=== PATIENT | female | born 1955 | race Caucasian/White ===

== ENCOUNTER 2017-11-12 19:10 | Inpatient (IN) | payer OTHER, SELFPAY ==
[2017-11-11 15:32] VITALS: BMI 45.7
[2017-11-12] VITALS (16 sets, daily range): BP systolic 115–166; BP diastolic 40–84; PULSE 60–70; RESP 12–16; TEMP 36.1–36.7; O2SAT 95–99; BMI 45.7
[2017-11-12] MEDS: LACTATED RINGERS 1,000 ML 42 ML IV (15:40)
--- NOTE | 2017-11-12 16:09 | PM.PREOP ---
Pre-operative Note Interval Note Pre-op Check: Yes History & Physical Reviewed by Physician and Yes Exam Performed Changes: No
--- NOTE | 2017-11-12 16:11 | P.OP_ITS ---
Operative Date/Time/Diagnoses Date of procedure: 11/12/17 Time of procedure: 16:20 Pre-op diagnosis: Left knee septic prepatellar bursitis Post-op diagnosis: same Procedure & Clinicians Procedure: Left knee irrigation and debridement, left knee prepatellar bursectomy Same procedure as scheduled: Yes Indications: Patient has a history of erythema and swelling along her left knee and prepatellar region. She was placed on oral antibiotics and subsequently seen at a walk-in clinic where she underwent an I and D. she notes persistent swelling and persistent drainage and ongoing significant pain. She has a history of a left total knee arthroplasty in 2015. Surgeon: Alise Stokes Shipping Agent: Dior Nunes Anesthesia Type: General Operative Notes Findings: Soft tissue swelling and an inflamed and thickened bursae which extended down to the pretibial area but did not clearly communicate with the knee joint. Closure Type: not applicable Specimen(s): other Applied: drain(s) Estimated Blood Loss (mL): 100 Blood products transfused: none Procedure in detail: The patient was brought to the operating room. Patient's left lower extremity was prepped and draped in standard sterile fashion after the induction of anesthesia. A time-out was performed. Patient's anterior surgical incision was used there was an open draining wound from her previous I and D done elsewhere. Incision was made dissection was carried out through skin and subcutaneous tissues. An excisional irrigation and debridement was performed debriding soft tissue and abnormal skin and subcutaneous tissues and a pretibial bursa. Deep tissue was sent for a Gram stain culture and sensitivity and PCR. Dissection was specifically carried out down to the level of the tibia. There was no obvious communication with the knee joint. The wound was meticulously irrigated with normal saline. Vancomycin powder was carefully placed into the wound. The wound was closed with nylon. A Hemovac drain was placed. Next the knee was prepped and an aspirate from a lateral approach was performed fluid was sent for Gram stain culture and sensitivity. A specific different approach was used in order to avoid contamination of the knee from the open wound. A aamir dressing was placed. Patient tolerated the procedure well and was transferred recovery room in satisfactory condition. Complications: other (Cultures and PCR) Condition: stable Disposition: Acute Care Plan for aftercare: IV antibiotics. Check culture and sensitivities. This may represent an underlying deep periprosthetic infection but we will follow up on cultures.
[2017-11-12] MEDS: VANCOMYCIN 1,000 MG VIAL 1000 MG INTRA-ARTI (16:48)
[2017-11-12] MEDS: GENTAMICIN IRR (16:51)
[2017-11-12] MEDS: SODIUM CHLORIDE 0.9% IRR (16:51)
[2017-11-12] MEDS: LORazepam 2 MG/ML SYRINGE 0.5 MG IV (17:33)
--- NOTE | 2017-11-12 17:38 | SUR.PHASEI ---
was very restless and moaning on arrival. S/P Lorazepam became calmer, reported feeling better and pain intensity decreased from 8 to 6 at this time.
[2017-11-12] MEDS: LACTATED RINGERS 1,000 ML 125 ML IV (19:46)
[2017-11-12] MEDS: OXYCODONE IR 5 MG TABLET PO (20:01)
[2017-11-12] MEDS: VANCOMYCIN 1,000 MG/200 ML FROZ.PIGGY 200 MG IV (21:06)
[2017-11-12] MEDS: MAGNESIUM HYDROXIDE 30 ML UDC PO (21:08)
[2017-11-12] MEDS: DOCUSATE 100 MG CAPSULE PO (21:08)
[2017-11-12 21:43] LABS: Estimated Glomerular Filt Rate > 60.0 mL/min (>60)
[2017-11-13] VITALS (7 sets, daily range): BP systolic 94–154; BP diastolic 57–74; PULSE 65–89; RESP 16–18; TEMP 36.4–36.8; O2SAT 93–97
[2017-11-13] MEDS: OXYCODONE IR 5 MG TABLET PO ×4 (01:14→19:50)
[2017-11-13 05:10] LABS: Hematocrit 35.7 % (36-46); Hemoglobin 11.8 g/dL (12.0-16.0); Mean Corpuscular HGB Conc 33.2 % (30-36); Mean Corpuscular Volume 75.3 fL (80-100); Platelet Count 202 X10^3/uL (150-400); Red Blood Cell Count 4.74 X10^6/uL (4.0-5.2); Red Cell Distribution Width 16.1 % (11.6-14.8); White Blood Cell Count 6.9 X10^3/uL (4.5-11.0)
[2017-11-13] MEDS: METFORMIN 850 MG TABLET PO ×2 (09:06→17:02)
[2017-11-13] MEDS: ATENOLOL 50 MG TABLET PO (09:06)
[2017-11-13] MEDS: DOCUSATE 100 MG CAPSULE PO ×2 (09:06→21:20)
[2017-11-13] MEDS: CALCIUM CARB/VIT D3 500/200 TABLET 1 EACH PO (09:06)
[2017-11-13] MEDS: MULTIVITAMIN 1 TABLET 1 TAB PO (09:07)
[2017-11-13] MEDS: VANCOMYCIN 1,000 MG/200 ML FROZ.PIGGY 200 MG IV ×2 (09:09→21:20)
--- NOTE | 2017-11-13 10:00 | PC.NURSE ---
AM NOTE - Alert, l knee w/christine wrap over aamir dsg, intact, green light flashing, small spot old serosang, hemovac intact w/o drainage in tubing or container, states pain 4 on scale -0/10, discussed medications and given 5mg oxycodone after breakfast for mobilization, bp 107/73 this am, ivf saline locked earlier, enc fluids, atenolol admin, will hold losartan and hctz until later after PT and review of bp, ra 95%, hr 78
--- NOTE | 2017-11-13 10:10 | PT.IIE ---
Current Diagnoses Effusion, left knee (11/12/17) Presence of left artificial knee joint (11/12/17) Surgery Performed Operation Date: 11/12/17 16:30 Actual Procedures p Incision and Drainage S/P Total Knee(Left) - Alise Stokes MD s LEFT KNEE IRRIGATION AND DEBRIDMENT BURSECTOMY(Left) - Alise Stokes MD Surgical History (Last Updated 11/11/17 @ 15:41 by Adriana Montana, RN) H/O arthrodesis (Acute) H/O: (Acute) History of total knee arthroplasty (Acute 03/30/13) S/P bunionectomy (Acute) S/P foot surgery, left (Acute) Medical History (Last Updated 11/11/17 @ 15:41 by Adriana Montana, RN) Arthritis (Acute) Cellulitis of knee, left (Acute) Diabetes (Acute) Fibromyalgia (Acute) Hypertension (Acute) Local infection of skin and subcutaneous tissue (Acute) Thyroid disease (Acute) Physical Therapy Inpatient Evaluation/Re-Eval M1 PT/OT-IP Prior Functional Status Start: 11/13/17 12:17 Freq: NEEDED Status: Active Protocol: Document 11/13/17 10:10 AB (Rec: 11/13/17 12:35 AB [email or web address]) Medical Review Prior Functional Status Medical History Reviewed Yes Mobility and Gait pt stated that she is independent with all mobilities and ambulation without AD but occasionally uses a hurrycane Social History Household Members spouse Living Arrangements House Number of Floors (Floors) One Floor Number of Stairs To Enter/Railing? pt has a ramp to enter the house Home Environment High Toilet Walk in Shower Home Equipment Front Wheel Walker Straight Cane Hand Held Shower Grab Bars Near Toilet Grab Bars In Shower Employment Status Retired Additional Social History Comment pt has a hurrycane M2 PT-IP Current Condition Start: 11/13/17 12:17 Freq: NEEDED Status: Active Protocol: Document 11/13/17 10:10 AB (Rec: 11/13/17 12:35 AB [email or web address]) Physical Therapy Current Condition Current Condition Evaluation Date 11/13/17 Treatment Diagnosis s/p I&D L knee and prepatellar bursectomy; difficulties in walking Onset Date 11/12/17 Weight Bearing Status Weight Bearing Status Weight Bear as Tolerated M3 PT-IP Subjective Start: 11/13/17 12:17 Freq: NEEDED Status: Active Protocol: Document 11/13/17 10:10 AB (Rec: 11/13/17 12:35 AB [email or web address]) Subjective Physical Therapy Visit Type Type Initial Evaluation Visit Start Time 10:10 Visit Stop Time 10:35 Total Visit Minutes 25 Number of PHOTO COLORER Visits 0 Physical Therapy Visit Comments Patient Comments pt requesting to use the toilet Therapy Pain Assessment Pain When Pain Assessed At Rest Pain Present Pain Present Pain Reported Location Left Knee Intensity 1 Scale Used Numeric (1 - 10) Pain Management Techniques Apply Cold Timing of Activity with Medications M4 PT-IP Mobility and Gait Start: 11/13/17 12:17 Freq: NEEDED Status: Active Protocol: Document 11/13/17 10:10 AB (Rec: 11/13/17 12:35 AB [email or web address]) PT-Bed Mobility Assessment Supine to Sit Supine to Sit Standby Assistance Sit to Supine Sit to Supine Standby Assistance Scooting Scooting to Edge of Bed Standby Assistance PT-Transfer Assessment Sit to and From Stand Sit to and from Stand Contact Guard Assistance 1 Person Assistance Use of Upper Extremities Equipment Transfer Assistive Device Gait Belt Front Wheeled Walker Transfers Transfer Destination Toilet Transfer Technique pt ambulated to the toilet Transfer Ability Level of Assist Contact Guard Assistance 1 Person Assistance Use of Upper Extremities Gait Assessment Gait Gait Assistance Required: Contact Guard Assist Distance (Feet) (feet) 35 Able to Maintain Weight Bearing Status Yes During Gait Assistive Devices Assistive Device Gait Belt Front Wheeled Walker Orthotic/Prosthetic Devices or Brace: No Gait Deviations General Gait Pattern Antalgic Factors Limiting Gait Function Factors Limiting Gait Function Decreased Activity Tolerance Decreased Strength Limited Range of Motion Pain Poor Balance Poor Safety Awareness PT-Balance Assessment Sitting Balance and Reactions Static Sitting Balance Ability Good Dynamic Sitting Balance Ability Good Standing Balance and Reactions Static Standing Balance Ability Fair Dynamic Standing Balance Ability Fair Device Used FWW M5 PT-IP Objective Assessments Start: 11/13/17 12:17 Freq: NEEDED Status: Active Protocol: Document 11/13/17 10:10 AB (Rec: 11/13/17 12:35 AB [email or web address]) Orientation Orientation/Cognition Level of Alertness Alert Orientation Name Age Birthday Month Date Year Day of Week Place Situation Safety Awareness Understands Safety Issues Memory Description No Deficits Noted Gross Range of Motion Lower Extremity ROM Assessment Bilaterally Impaired Strength Lower Extremity Strength Assessment Bilaterally Impaired Knee 4-/5 Muscle Tone Muscle Tone WNL Yes M6 PT-IP Treatment Start: 11/13/17 12:17 Freq: NEEDED Status: Active Protocol: Document 11/13/17 10:10 AB (Rec: 11/13/17 12:35 AB [email or web address]) Physical Therapy Treatment Education Education Provided Weight Bearing Status Safety M7 PT-IP Assessment and Plan Start: 11/13/17 12:17 Freq: NEEDED Status: Active Protocol: Document 11/13/17 10:10 AB (Rec: 11/13/17 12:35 AB [email or web address]) PT Summary Assessment and Plan Potential Rehabilitation Potential Good Status of Condition at Evaluation Stable Summary Impairments Pain ROM Strength Balance Sensation Bed Mobility Transfers Gait Activity Tolerance Assessment Summary pt requiring CGA with mobility and plans to go home with spouse/son to assist her. Pt may go home when medically stable. Goals Bed Mobility Goal Independent Transfer Goal Independent Gait Goal Independent Gait Distance 150 Days to Meet Goals 0 Frequency of Treatment Frequency Of Treatment Twice a Day Treatment Plan Physical Therapy Treatment Plan Bed Mobility Training Transfer Training Gait Training Therapeutic Exercise Balance Retraining Post Op Education Discharge Planning Hot or Cold Pack Neuromuscular Re-ed Coordination Retraining Manual Therapy Recommendations To Nursing Amount of Assist Needed 1 Person Assist Discharge Recommendations PT Discharge Recommendations Home with Assistance Outpatient PT
[2017-11-13] MEDS: LOSARTAN 50 MG TABLET 100 MG PO (12:01)
[2017-11-13] MEDS: hydroCHLOROthiazide 25 MG TABLET 50 MG PO (12:01)
--- NOTE | 2017-11-13 13:59 | PM.PNPO.1 ---
Subjective Date Patient Seen: 11/13/17 Time Patient Seen: 05:59 Interval history: POD #1 status post I and D of left knee with Dr. Stokes. She has a Hemovac drain in place that will be left until tomorrow. She was started on IV vancomycin. She states she is allergic to sulfas and penicillins. She has not had any issues with Keflex or clindamycin in the past. Her pain is well controlled. Denies any fevers or chills. She noted she has has had a history of cellulitis for the past 2 years. Exam Vital Signs (past 8 hours): - 11/13/17 07:25 11/13/17 10:09 11/13/17 11:40 Temperature 97.6 F 97.6 F Pulse Rate 74 65 Respiratory Rate 16 16 Blood Pressure 107/73 133/74 H Pulse Oximetry 93 95 94 Oxygen Delivery Method Room Air Narrative Exam Narrative: Patient lying in bed in no acute distress. Hemovac drain in place. Garcia wrap in place with aamir dressing. Objective Labs Result Diagrams: 11/13/17 04:54 11/12/17 21:13 Labs: Laboratory Results - last 24 hr 11/12/17 11/13/17 21:13 04:54 WBC 6.9 RBC 4.74 Hgb 11.8 L Hct 35.7 L MCV 75.3 L MCH 25.0 L MCHC 33.2 RDW 16.1 H Plt Count 202 Creatinine 0.60 Estimated GFR > 60.0 Assessment & Plan Post-op Postoperative Procedures Operation Date: 11/12/17 16:30 Actual Procedures Side Surgeon p Incision and Drainage S/P Total Knee Left Alise Stokes MD s LEFT KNEE IRRIGATION AND DEBRIDMENT BURSECTOMY Left Alise Stokes MD POD #1 status post I and D of left knee with Dr. Stokes. Leave drain in place for another day. Plan to discharge home on oral antibiotics. Continue current pain management. Leave dressing in place for at least 10 days. She will get up with physical therapy today. Plan to discharge home tomorrow. Time Spent With Patient less than 15 minutes Quality VTE Deep Vein Thrombosis/Pulmonary Embolism Present on Admission: No
--- NOTE | 2017-11-13 14:24 | PT.IPTN ---
Current Diagnoses Effusion, left knee (11/12/17) Presence of left artificial knee joint (11/12/17) Surgery Performed Operation Date: 11/12/17 16:30 Actual Procedures p Incision and Drainage S/P Total Knee(Left) - Alise Stokes MD s LEFT KNEE IRRIGATION AND DEBRIDMENT BURSECTOMY(Left) - Alise Stokes MD Physical Therapy Treatment Note M2 PT-IP Current Condition Start: 11/13/17 12:17 Freq: NEEDED Status: Active Protocol: Document 11/13/17 10:10 AB (Rec: 11/13/17 12:35 AB [email or web address]) Physical Therapy Current Condition Current Condition Evaluation Date 11/13/17 Treatment Diagnosis s/p I&D L knee and prepatellar bursectomy; difficulties in walking Onset Date 11/12/17 Weight Bearing Status Weight Bearing Status Weight Bear as Tolerated M3 PT-IP Subjective Start: 11/13/17 12:17 Freq: NEEDED Status: Active Protocol: Document 11/13/17 14:24 AB (Rec: 11/13/17 15:48 AB [id number]) Subjective Physical Therapy Visit Type Type Treatment Note Visit Start Time 14:24 Visit Stop Time 14:38 Total Visit Minutes 14 Number of DEPARTMENT OF NATURAL RESOURCES OFFICER Visits 0 Physical Therapy Visit Comments Patient Comments pt agreeable to do therapy Therapy Pain Assessment Pain Present Pain Present Denied Pain M4 PT-IP Mobility and Gait Start: 11/13/17 12:17 Freq: NEEDED Status: Active Protocol: Document 11/13/17 14:24 AB (Rec: 11/13/17 15:48 AB [id number]) PT-Transfer Assessment Sit to and From Stand Sit to and from Stand Standby Assistance Equipment Transfer Assistive Device Gait Belt Front Wheeled Walker Gait Assessment Gait Gait Assistance Required: Standby Assistance Distance (Feet) (feet) 75 Able to Maintain Weight Bearing Status Yes During Gait Assistive Devices Assistive Device Gait Belt Front Wheeled Walker Orthotic/Prosthetic Devices or Brace: No Gait Deviations General Gait Pattern Antalgic Factors Limiting Gait Function Factors Limiting Gait Function Decreased Activity Tolerance Decreased Strength Limited Range of Motion Poor Balance M5 PT-IP Objective Assessments Start: 11/13/17 12:17 Freq: NEEDED Status: Active Protocol: Document 11/13/17 10:10 AB (Rec: 11/13/17 12:35 AB [email or web address]) Orientation Orientation/Cognition Level of Alertness Alert Orientation Name Age Birthday Month Date Year Day of Week Place Situation Safety Awareness Understands Safety Issues Memory Description No Deficits Noted Gross Range of Motion Lower Extremity ROM Assessment Bilaterally Impaired Strength Lower Extremity Strength Assessment Bilaterally Impaired Knee 4-/5 Muscle Tone Muscle Tone WNL Yes M6 PT-IP Treatment Start: 11/13/17 12:17 Freq: NEEDED Status: Active Protocol: Document 11/13/17 10:10 AB (Rec: 11/13/17 12:35 AB [email or web address]) Physical Therapy Treatment Education Education Provided Weight Bearing Status Safety M7 PT-IP Assessment and Plan Start: 11/13/17 12:17 Freq: NEEDED Status: Active Protocol: Document 11/13/17 14:24 AB (Rec: 11/13/17 15:48 AB [id number]) PT Summary Assessment and Plan Potential Rehabilitation Potential Good Summary Impairments Pain ROM Strength Balance Bed Mobility Transfers Gait Activity Tolerance Progress Towards Goals Progressing Toward Goals Assessment Summary pt doing well with mobility and may go home when medically stable. Goals Bed Mobility Goal Independent Transfer Goal Independent Gait Goal Independent Gait Distance 150 Days to Meet Goals 0 Frequency of Treatment Frequency Of Treatment Twice a Day Treatment Plan Physical Therapy Treatment Plan Bed Mobility Training Transfer Training Gait Training Therapeutic Exercise Balance Retraining Post Op Education Discharge Planning Hot or Cold Pack Neuromuscular Re-ed Coordination Retraining Manual Therapy Recommendations To Nursing Amount of Assist Needed 1 Person Assist Discharge Recommendations PT Discharge Recommendations Home with Assistance Outpatient PT
--- NOTE | 2017-11-13 15:21 | CM.IDA ---
DCP Assessment Note: Pt is a 62 yo female, resident of [place]. Pt admitted as inpt as of 11/12 for I+D of left knee by Dr Stokes. Pt's PCP is Kelli Stovall; Insurance is [facility]. Met w/pt, explained SW role. Pt lives in [place] w/her and adult son. Pt is mostly indp at baseline, although she has rheumatoid arthritis and can have bad days when she is unable to do much outside her home d/t pain/swelling. On her good days pt drives, does all ADLs ind, goes to the gym at [employer], and volunteers at [employer]. 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 She had her knee replaced 5 years ago and understands that recovery can be lengthy. She admits to good family and friend support. Pt has [facility] d/t her disability benefits. She has no h/o or need for HH or SNF. Likely home w/supportive family when medically cleared. PT has cleared pt for return home. CALLY Blair Discharge Planning/Care Management Discharge Assessment Start: 11/13/17 15:19 Freq: Status: Active Protocol: Document 11/13/17 15:19 STEFFANIE (Rec: 11/13/17 15:21 STEFFANIE [id number]) Discharge Planning Assessment Assigned [place] STEFFANIE History Provided By Patient Has Patient been admitted in last 30 No days? Is this patient on Medicare? Yes Comment Bee Prior Living Arrangements House Household Members spouse children Type of transporation used prior to Drives own vehicle admit Independent with ADL's Yes: Needs rest breaks d/t arthritis Is patient alert and oriented? Yes Needs Assistance With Home Chores / Shopping Caregiver for Another No Referrals Initiated None needed Discharge Plan Home Transportation Arrangement Family Review Status In Process Next Review Type Discharge Review
[2017-11-13] MEDS: MAGNESIUM HYDROXIDE 30 ML UDC PO (21:20)
[2017-11-13] MEDS: OXYCODONE/ACETAMINOPHEN 5/325 TABLET 1 TAB PO (23:32)
[2017-11-14 05:38] VITALS: BP 150/85; PULSE 79; RESP 16; TEMP 37.2; O2SAT 97
[2017-11-14 07:53] VITALS: BP 140/73; PULSE 77; RESP 16; TEMP 36.7; O2SAT 96
--- NOTE | 2017-11-14 08:20 | PM.PN.1 ---
Subjective Date Patient Seen: 11/14/17 Time Patient Seen: 08:10 Interval history: The patient is comfortable. She is anxious to go home. She is complaining of some left great toe pain consistent with her previous diagnosis of gout. She was restarted on allopurinol last night. Exam Vital Signs (past 8 hours): - 11/14/17 05:38 11/14/17 07:53 Temperature 98.9 F 98.1 F Pulse Rate 79 77 Respiratory Rate 16 16 Blood Pressure 150/85 H 140/73 H Pulse Oximetry 97 96 Oxygen Delivery Method Room Air Narrative Exam Narrative: Left knee wound is dressed with minimal drainage on the bandage. Calf is soft. Light touch and motion are intact in the left lower extremity. The great toe metatarsophalangeal joint is slightly erythematous and mildly swollen and tender. Objective Labs Result Diagrams: 11/13/17 04:54 11/12/17 21:13 Labs: Culture results are no growth to date. Assessment & Plan Plan: Assessment/Plan Narrative: The patient has had a septic prepatellar bursitis drained. She has an underlying total knee replacement which did not appear to be involved. She also appears to be having a flare of her previously diagnosed gout. Plan is to remove the drain today. We will continue her IV antibiotics as previously ordered. We will review the cultures when they become available tomorrow. She may need to stay an additional day to obtain sensitivities beyond that. We will treat her gout with allopurinol and non operative measures. Quality VTE Deep Vein Thrombosis/Pulmonary Embolism Present on Admission: No
[2017-11-14] MEDS: OXYCODONE IR 5 MG TABLET PO ×3 (08:30→21:42)
[2017-11-14] MEDS: METFORMIN 850 MG TABLET PO ×2 (08:31→17:03)
[2017-11-14] MEDS: ALLOPURINOL 300 MG TABLET PO (08:31)
[2017-11-14] MEDS: CALCIUM CARB/VIT D3 500/200 TABLET 1 EACH PO (08:32)
[2017-11-14] MEDS: DOCUSATE 100 MG CAPSULE PO ×2 (08:32→21:42)
[2017-11-14] MEDS: hydroCHLOROthiazide 25 MG TABLET 50 MG PO (08:32)
[2017-11-14] MEDS: ATENOLOL 50 MG TABLET PO (08:32)
[2017-11-14] MEDS: LOSARTAN 50 MG TABLET 100 MG PO (08:33)
[2017-11-14] MEDS: MULTIVITAMIN 1 TABLET 1 TAB PO (08:33)
[2017-11-14] MEDS: MAGNESIUM HYDROXIDE 30 ML UDC PO (08:34)
[2017-11-14] MEDS: VANCOMYCIN TROUGH 1 REQUEST MISC (08:43)
[2017-11-14 09:28] LABS: Vancomycin Trough 7.5 ug/mL (10-20)
--- NOTE | 2017-11-14 09:30 | PT.IPTN ---
Current Diagnoses Effusion, left knee (11/12/17) Presence of left artificial knee joint (11/12/17) Surgery Performed Operation Date: 11/12/17 16:30 Actual Procedures p Incision and Drainage S/P Total Knee(Left) - Ailse Stokes MD s LEFT KNEE IRRIGATION AND DEBRIDMENT BURSECTOMY(Left) - Alise Stokes MD Physical Therapy Treatment Note M2 PT-IP Current Condition Start: 11/13/17 12:17 Freq: NEEDED Status: Active Protocol: Document 11/13/17 10:10 AB (Rec: 11/13/17 12:35 AB [email or web address]) Physical Therapy Current Condition Current Condition Evaluation Date 11/13/17 Treatment Diagnosis s/p I&D L knee and prepatellar bursectomy; difficulties in walking Onset Date 11/12/17 Weight Bearing Status Weight Bearing Status Weight Bear as Tolerated M3 PT-IP Subjective Start: 11/13/17 12:17 Freq: NEEDED Status: Active Protocol: Document 11/14/17 09:27 GGD (Rec: 11/14/17 09:30 GGD [email or web address]) Subjective Physical Therapy Visit Type Type Treatment Note Visit Start Time 08:55 Visit Stop Time 09:25 Total Visit Minutes 30 Number of COIL PLACER Visits 1 Physical Therapy Visit Comments Patient Comments Pt states her foot hurts to walk. Therapy Pain Assessment Pain When Pain Assessed At Rest Pain Present Pain Present Pain Reported Location Left Knee Intensity 1 Scale Used Numeric (1 - 10) M4 PT-IP Mobility and Gait Start: 11/13/17 12:17 Freq: NEEDED Status: Active Protocol: Document 11/14/17 09:27 GGD (Rec: 11/14/17 09:30 GGD [id number]) PT-Bed Mobility Assessment Supine to Sit Supine to Sit Standby Assistance Sit to Supine Sit to Supine Standby Assistance Scooting Scooting to Edge of Bed Standby Assistance PT-Transfer Assessment Sit to and From Stand Sit to and from Stand Contact Guard Assistance 1 Person Assistance Use of Upper Extremities Equipment Transfer Assistive Device Gait Belt Front Wheeled Walker Transfers Transfer Destination Toilet Transfer Ability Level of Assist Contact Guard Assistance 1 Person Assistance Use of Upper Extremities Gait Assessment Gait Gait Assistance Required: Contact Guard Assist Distance (Feet) (feet) 20 Assistive Devices Assistive Device Gait Belt Front Wheeled Walker Orthotic/Prosthetic Devices or Brace: No Gait Deviations General Gait Pattern Antalgic Factors Limiting Gait Function Factors Limiting Gait Function Decreased Activity Tolerance Decreased Strength Limited Range of Motion Pain Poor Balance Poor Safety Awareness M5 PT-IP Objective Assessments Start: 11/13/17 12:17 Freq: NEEDED Status: Active Protocol: Document 11/13/17 10:10 AB (Rec: 11/13/17 12:35 AB [email or web address]) Orientation Orientation/Cognition Level of Alertness Alert Orientation Name Age Birthday Month Date Year Day of Week Place Situation Safety Awareness Understands Safety Issues Memory Description No Deficits Noted Gross Range of Motion Lower Extremity ROM Assessment Bilaterally Impaired Strength Lower Extremity Strength Assessment Bilaterally Impaired Knee 4-/5 Muscle Tone Muscle Tone WNL Yes M6 PT-IP Treatment Start: 11/13/17 12:17 Freq: NEEDED Status: Active Protocol: Document 11/14/17 09:27 GGD (Rec: 11/14/17 09:30 GGD [id number]) Physical Therapy Treatment Exercises Exercises Ankle Pumps Quad Sets Heel Slides Straight Leg Raises Seated Knee Flexion/Extension M7 PT-IP Assessment and Plan Start: 11/13/17 12:17 Freq: NEEDED Status: Active Protocol: Document 11/14/17 09:27 GGD (Rec: 11/14/17 09:30 GGD [id number]) PT Summary Assessment and Plan Summary Assessment Summary Pt improving slowly. Her gait is limited by foot pain. She has decrease tolerance to weight bearing. Frequency of Treatment Frequency Of Treatment Twice a Day Treatment Plan Physical Therapy Treatment Plan Bed Mobility Training Transfer Training Gait Training Therapeutic Exercise Balance Retraining Post Op Education Discharge Planning Hot or Cold Pack Neuromuscular Re-ed Coordination Retraining Manual Therapy Recommendations To Nursing Amount of Assist Needed 1 Person Assist Discharge Recommendations PT Discharge Recommendations Home with Assistance Outpatient PT
--- NOTE | 2017-11-14 09:34 | PC.NURSE ---
Addendum entered by Lety Gramajo R.N. 11/14/17 14:06: PAIN - after lunch, given 5mg oxycodone for l foot discomfort, continues with minimal l knee discomfort. Original Note: Addendum entered by Lety Gramajo R.N. 11/14/17 10:16: INTEG - hemovac suction released, some slight serosang drainage wound, pressure applied and 2x2 with op site over, noted to have x 2 fluid filled blisters under the christine wrap, medial areas calf, placed allevyn dressings. Original Note: AM NOTE - alert, states had uncomfortable night due pain l gt toe,some pink and edema noted around joint, states pain l knee is minimal, aamir drain intact and flashing green, dsg c,d,i w/christine wrap over, small qty serosang in hemovac, discussed pain mgt and given 5mg po oxycodone and the allupurinol at breakfast, later states able mobilize with phys therapy and pain well managed, vanco trough completed and Omid in pharmacy will review dosing with the 7.5 value and to hold the 9 am dose until reviewed.
[2017-11-14] MEDS: VANCOMYCIN 1,250 MG in SODIUM CHLORIDE 0.9% 250 ML IV ×2 (09:55→21:42)
[2017-11-14 10:26] VITALS: O2SAT 95
[2017-11-14 12:00] VITALS: BP 138/61; PULSE 71; RESP 16; TEMP 36.6; O2SAT 98
--- NOTE | 2017-11-14 12:12 | PT.IPTN ---
Current Diagnoses Effusion, left knee (11/12/17) Presence of left artificial knee joint (11/12/17) Surgery Performed Operation Date: 11/12/17 16:30 Actual Procedures p Incision and Drainage S/P Total Knee(Left) - Alise Stokes MD s LEFT KNEE IRRIGATION AND DEBRIDMENT BURSECTOMY(Left) - Alise Stokes MD Physical Therapy Treatment Note M2 PT-IP Current Condition Start: 11/13/17 12:17 Freq: NEEDED Status: Active Protocol: Document 11/13/17 10:10 AB (Rec: 11/13/17 12:35 AB [email or web address]) Physical Therapy Current Condition Current Condition Evaluation Date 11/13/17 Treatment Diagnosis s/p I&D L knee and prepatellar bursectomy; difficulties in walking Onset Date 11/12/17 Weight Bearing Status Weight Bearing Status Weight Bear as Tolerated M3 PT-IP Subjective Start: 11/13/17 12:17 Freq: NEEDED Status: Active Protocol: Document 11/14/17 12:10 GGD (Rec: 11/14/17 12:12 GGD [id number]) Subjective Physical Therapy Visit Type Type Patient Refusal Physical Therapy Visit Comments Patient Comments Pt states she would like not to walk due to gout, She would like to wait until the foot pain improves. Will see in AM. M4 PT-IP Mobility and Gait Start: 11/13/17 12:17 Freq: NEEDED Status: Active Protocol: Document 11/14/17 09:27 GGD (Rec: 11/14/17 09:30 GGD [id number]) PT-Bed Mobility Assessment Supine to Sit Supine to Sit Standby Assistance Sit to Supine Sit to Supine Standby Assistance Scooting Scooting to Edge of Bed Standby Assistance PT-Transfer Assessment Sit to and From Stand Sit to and from Stand Contact Guard Assistance 1 Person Assistance Use of Upper Extremities Equipment Transfer Assistive Device Gait Belt Front Wheeled Walker Transfers Transfer Destination Toilet Transfer Ability Level of Assist Contact Guard Assistance 1 Person Assistance Use of Upper Extremities Gait Assessment Gait Gait Assistance Required: Contact Guard Assist Distance (Feet) (feet) 20 Assistive Devices Assistive Device Gait Belt Front Wheeled Walker Orthotic/Prosthetic Devices or Brace: No Gait Deviations General Gait Pattern Antalgic Factors Limiting Gait Function Factors Limiting Gait Function Decreased Activity Tolerance Decreased Strength Limited Range of Motion Pain Poor Balance Poor Safety Awareness M5 PT-IP Objective Assessments Start: 11/13/17 12:17 Freq: NEEDED Status: Active Protocol: Document 11/13/17 10:10 AB (Rec: 11/13/17 12:35 AB [email or web address]) Orientation Orientation/Cognition Level of Alertness Alert Orientation Name Age Birthday Month Date Year Day of Week Place Situation Safety Awareness Understands Safety Issues Memory Description No Deficits Noted Gross Range of Motion Lower Extremity ROM Assessment Bilaterally Impaired Strength Lower Extremity Strength Assessment Bilaterally Impaired Knee 4-/5 Muscle Tone Muscle Tone WNL Yes M6 PT-IP Treatment Start: 11/13/17 12:17 Freq: NEEDED Status: Active Protocol: Document 11/14/17 09:27 GGD (Rec: 11/14/17 09:30 GGD [email or web address]) Physical Therapy Treatment Exercises Exercises Ankle Pumps Quad Sets Heel Slides Straight Leg Raises Seated Knee Flexion/Extension M7 PT-IP Assessment and Plan Start: 11/13/17 12:17 Freq: NEEDED Status: Active Protocol: Document 11/14/17 09:27 GGD (Rec: 11/14/17 09:30 GGD [id number]) PT Summary Assessment and Plan Summary Assessment Summary Pt improving slowly. Her gait is limited by foot pain. She has decrease tolerance to weight bearing. Frequency of Treatment Frequency Of Treatment Twice a Day Treatment Plan Physical Therapy Treatment Plan Bed Mobility Training Transfer Training Gait Training Therapeutic Exercise Balance Retraining Post Op Education Discharge Planning Hot or Cold Pack Neuromuscular Re-ed Coordination Retraining Manual Therapy Recommendations To Nursing Amount of Assist Needed 1 Person Assist Discharge Recommendations PT Discharge Recommendations Home with Assistance Outpatient PT
[2017-11-14 15:37] VITALS: BP 123/65; PULSE 76; RESP 18; TEMP 37.1; O2SAT 96
[2017-11-14 20:35] VITALS: BP 135/71; PULSE 83; RESP 18; TEMP 37.4; O2SAT 93
[2017-11-15 01:55] VITALS: BP 135/68; PULSE 70; RESP 16; O2SAT 94
[2017-11-15] MEDS: OXYCODONE IR 5 MG TABLET PO ×4 (01:58→12:44)
[2017-11-15] MEDS: ACETAMINOPHEN 325 MG TABLET PO (02:01)
[2017-11-15 05:54] VITALS: BP 118/68; PULSE 80; RESP 16; TEMP 36.7; O2SAT 92
[2017-11-15] MEDS: DOCUSATE 100 MG CAPSULE PO (08:32)
[2017-11-15] MEDS: MULTIVITAMIN 1 TABLET 1 TAB PO (08:32)
[2017-11-15] MEDS: ALLOPURINOL 300 MG TABLET PO (08:32)
[2017-11-15] MEDS: ATENOLOL 50 MG TABLET PO (08:32)
[2017-11-15] MEDS: CALCIUM CARB/VIT D3 500/200 TABLET 1 EACH PO (08:33)
[2017-11-15] MEDS: METFORMIN 850 MG TABLET PO (08:33)
[2017-11-15] MEDS: hydroCHLOROthiazide 25 MG TABLET 50 MG PO (08:33)
[2017-11-15 08:35] VITALS: BP 131/69; PULSE 70; RESP 14; TEMP 36.3; O2SAT 95
[2017-11-15] MEDS: LOSARTAN 50 MG TABLET 100 MG PO (08:35)
--- NOTE | 2017-11-15 09:47 | PM.PNPO.1 ---
Subjective Date Patient Seen: 11/15/17 Time Patient Seen: 09:45 Interval history: The patient's main complaint continues to be of left great toe metatarsophalangeal joint pain and inflammation consistent with gout. Her knee has been relatively asymptomatic. Exam Vital Signs (past 8 hours): - 11/15/17 01:55 11/15/17 05:54 11/15/17 08:35 Temperature 98.1 F 97.4 F L Pulse Rate 70 80 70 Respiratory Rate 16 16 14 Blood Pressure 135/68 H 118/68 131/69 H Pulse Oximetry 94 92 95 Oxygen Delivery Method Room Air Oxygen Flow Rate 0 Narrative Exam Narrative: Left knee wound is dressed with minimal drainage on the bandage. The drain site has no significant drainage. Calf is soft. Light touch and motion are intact in the left lower extremity. Left great toe is mildly erythematous and swollen at the metatarsophalangeal joint with pain on range of motion of this joint. Objective Labs Result Diagrams: 11/13/17 04:54 11/12/17 21:13 Labs: Culture results are returning showing Staph aureus. Sensitivity results are pending. Assessment & Plan Post-op Postoperative Procedures Operation Date: 11/12/17 16:30 Actual Procedures Side Surgeon p Incision and Drainage S/P Total Knee Left Alise Stokes MD s LEFT KNEE IRRIGATION AND DEBRIDMENT BURSECTOMY Left Alise Stokes MD Postoperative day: 3 Postoperative status: doing well Postoperative plan: routine post-op care (We will continue the patient's vancomycin today. Once culture results are available she will be switched to appropriate oral medication and discharged. This will likely be tomorrow.) Time Spent With Patient less than 15 minutes Quality VTE Deep Vein Thrombosis/Pulmonary Embolism Present on Admission: No
--- NOTE | 2017-11-15 09:58 | PC.NURSE ---
Patient cannot have milk, rice or potatoes. No fruit except for strawberries. No sugar or cream.
--- NOTE | 2017-11-15 10:02 | PC.NURSE ---
Pt reports gout in left foot is improving, but still painful when ambulating. Call to lab re cultures and they report no MRSA detected.
--- NOTE | 2017-11-15 10:19 | PM.DS.1 ---
History of Present Illness Date Patient Seen: 11/15/17 Time Patient Seen: 10:15 Chief complaint: [id number] irrigation excisional debride valdemarknee Narrative: History and physical note is contained in the chart are previously completed documentation. Please refer to that note for this information. Discharge Providers Date of admission: 11/12/17 19:10 Primary care physician: Kelli Stovall MD Consults: 11/12/17 19:10 Consult to Discharge Planning Routine Comment: Consult to Physical Therapy Evaluate & Treat Comment: wbat Physician Instructions: Evaluate and Treat Consult to Respiratory Therapy Evaluate & Treat Comment: Physician Instructions: Evaluate and treat Discharge provider: Khurram Coelho MD Discharge Date: 11/15/17 Summary Discharge Diagnosis: Septic prepatellar bursitis, left knee Hospital Course: The patient was admitted to the hospital and taken to the operating room for drainage of her septic prepatellar bursitis. She was maintained in the hospital for IV vancomycin until cultures returned with a non methicillin-resistant Staph epidermidis. Her postoperative course was marked by a flare of pre-existing gout. Otherwise she had a completely stable postoperative course. Status at Discharge Cognitive/behavioral status at discharge: Baseline. Functional status at discharge: uses cane/walker Overall status at discharge: patient is progressing back to baseline Time Spent with Patient Less than 30 minutes Exam Vital Signs (past 8 hours): - 11/15/17 05:54 11/15/17 08:35 Temperature 98.1 F 97.4 F L Pulse Rate 80 70 Respiratory Rate 16 14 Blood Pressure 118/68 131/69 H Pulse Oximetry 92 95 Oxygen Delivery Method Room Air Oxygen Flow Rate 0 Narrative Exam Narrative: On physical examination her dressing has minimal drainage. Calf is soft. Light touch and motion are intact in left lower extremity. Left great toe metatarsophalangeal joint is moderately inflamed consistent with her pre-existing gout. Objective Labs Result Diagrams: 11/13/17 04:54 11/12/17 21:13 Labs: By phone report from the laboratory the Staph species that was isolated is not methicillin-resistant. Discharge Plan Discharge Plan Patient Disposition: Home, Self-Care Discharge Med Rec/Prescriptions Prescriptions: New oxycodone 5 mg Tablet 5 mg PO Q3HR PRN (Reason: Pain, Moderate (4-6)) Qty: 40 RF: 0 clindamycin HCl 150 mg Capsule 300 mg PO Q8HR Qty: 100 RF: 0 allopurinol 300 mg Tablet 300 mg PO DAILY Qty: 30 RF: 0 Continue atenolol 50 MG tablet 50 mg PO QDAY Qty: 0 RF: 0 Metformin Hydrochloride (GLUCOPHAGE) 850 mg PO BIDCC Qty: 0 RF: 0 losartan 50 MG tablet 100 mg PO QDAY Qty: 0 RF: 0 hydrochlorothiazide 25 MG tablet 50 mg PO QDAY Qty: 0 RF: 0 multivitamin Tablet 1 tab PO DAILY RF: 0 potassium citrate 5 mEq (540 mg) Tablet Extended Release 2 tab PO TID RF: 0 calcium carbonate-vitamin D3 [Calcium 500 + D (D3)] 500 mg(1,250mg) -125 unit Tablet 1 tab PO DAILY RF: 0 Follow up/Referrals: Alise Stokes MD [Physician] - 2 Weeks Provider Discharge Instructions Diet: Diet as Tolerated and Carb-consistent/Diabetic Activity: Up as needed Cold/Heat Therapy: May ice knee as needed. Wound Care Report to your healthcare provider any signs of infection, such as:: chills, fever, night sweats, increased pain and unusual drainage Dressing: Leave dressing intact until follow up. Visit Report/Discharge Packet Stand Alone Forms: Surgery Discharge Discharge Data Primary Care Provider: Kelli Stovall Attending Provider: Alise Stokes Admit Date/Time: 11/12/17 19:10 Quality VTE Deep Vein Thrombosis/Pulmonary Embolism Present on Admission: No
[2017-11-15] MEDS: VANCOMYCIN 1,250 MG in SODIUM CHLORIDE 0.9% 250 ML IV (10:26)
--- NOTE | 2017-11-15 11:00 | PT.IPTN ---
Current Diagnoses Effusion, left knee (11/12/17) Presence of left artificial knee joint (11/12/17) Surgery Performed Operation Date: 11/12/17 16:30 Actual Procedures p Incision and Drainage S/P Total Knee(Left) - Alise Stokes MD s LEFT KNEE IRRIGATION AND DEBRIDMENT BURSECTOMY(Left) - Alise Stokes MD Physical Therapy Treatment Note M2 PT-IP Current Condition Start: 11/13/17 12:17 Freq: NEEDED Status: Active Protocol: Document 11/13/17 10:10 AB (Rec: 11/13/17 12:35 AB [email or web address]) Physical Therapy Current Condition Current Condition Evaluation Date 11/13/17 Treatment Diagnosis s/p I&D L knee and prepatellar bursectomy; difficulties in walking Onset Date 11/12/17 Weight Bearing Status Weight Bearing Status Weight Bear as Tolerated M3 PT-IP Subjective Start: 11/13/17 12:17 Freq: NEEDED Status: Active Protocol: Document 11/15/17 10:00 CLB (Rec: 11/15/17 11:00 CLB [id number]) Subjective Physical Therapy Visit Type Type Treatment Note Visit Start Time 10:00 Visit Stop Time 10:20 Total Visit Minutes 20 Number of MOLDED PARTS INSPECTOR Visits 2 Physical Therapy Visit Comments Patient Comments Pt refused ambulation due to just having shower and foot pain due to gout. Therapy Pain Assessment Pain When Pain Assessed At Rest Pain Present Pain Present Pain Reported M4 PT-IP Mobility and Gait Start: 11/13/17 12:17 Freq: NEEDED Status: Active Protocol: Document 11/14/17 09:27 GGD (Rec: 11/14/17 09:30 GGD [id number]) PT-Bed Mobility Assessment Supine to Sit Supine to Sit Standby Assistance Sit to Supine Sit to Supine Standby Assistance Scooting Scooting to Edge of Bed Standby Assistance PT-Transfer Assessment Sit to and From Stand Sit to and from Stand Contact Guard Assistance 1 Person Assistance Use of Upper Extremities Equipment Transfer Assistive Device Gait Belt Front Wheeled Walker Transfers Transfer Destination Toilet Transfer Ability Level of Assist Contact Guard Assistance 1 Person Assistance Use of Upper Extremities Gait Assessment Gait Gait Assistance Required: Contact Guard Assist Distance (Feet) (feet) 20 Assistive Devices Assistive Device Gait Belt Front Wheeled Walker Orthotic/Prosthetic Devices or Brace: No Gait Deviations General Gait Pattern Antalgic Factors Limiting Gait Function Factors Limiting Gait Function Decreased Activity Tolerance Decreased Strength Limited Range of Motion Pain Poor Balance Poor Safety Awareness M5 PT-IP Objective Assessments Start: 11/13/17 12:17 Freq: NEEDED Status: Active Protocol: Document 11/13/17 10:10 AB (Rec: 11/13/17 12:35 AB [email or web address]) Orientation Orientation/Cognition Level of Alertness Alert Orientation Name Age Birthday Month Date Year Day of Week Place Situation Safety Awareness Understands Safety Issues Memory Description No Deficits Noted Gross Range of Motion Lower Extremity ROM Assessment Bilaterally Impaired Strength Lower Extremity Strength Assessment Bilaterally Impaired Knee 4-/5 Muscle Tone Muscle Tone WNL Yes M6 PT-IP Treatment Start: 11/13/17 12:17 Freq: NEEDED Status: Active Protocol: Document 11/15/17 10:00 CLB (Rec: 11/15/17 11:00 CLB [id number]) Physical Therapy Treatment Exercises Exercises Ankle Pumps Quad Sets Heel Slides Straight Leg Raises Education Education Provided Weight Bearing Status Post-Op Packet Safety M7 PT-IP Assessment and Plan Start: 11/13/17 12:17 Freq: NEEDED Status: Active Protocol: Document 11/15/17 10:00 CLB (Rec: 11/15/17 11:00 CLB [id number]) PT Summary Assessment and Plan Summary Assessment Summary Pt gait is limited by foot pain but pt was able to perform all ther ex for L knee . Goals Bed Mobility Goal Independent Transfer Goal Independent Gait Goal Independent Gait Distance 150 Frequency of Treatment Frequency Of Treatment Twice a Day Treatment Plan Physical Therapy Treatment Plan Bed Mobility Training Transfer Training Gait Training Therapeutic Exercise Balance Retraining Post Op Education Discharge Planning Hot or Cold Pack Neuromuscular Re-ed Coordination Retraining Manual Therapy Recommendations To Nursing Amount of Assist Needed 1 Person Assist Discharge Recommendations PT Discharge Recommendations Home with Assistance Outpatient PT
== END 2017-11-15 13:27 | disposition home or self-care (01) | DRG 488 ==
LOC: OR 11-15 08:30
PROVIDERS: Admitting Provider Orthopaedic Surgery; PCP Family Medicine; Visit Provider Orthopaedic Surgery
PROC: 0MBP0ZZ Excision of Left Knee Bursa and Ligament, Open Approach (ICD-10-PCS; principal; 2017-11-12 16:30)
PROC: 0MBP0ZZ Excision of Left Knee Bursa and Ligament, Open Approach (ICD-10-PCS; 2017-11-12 16:30)
DX: M71.162 Other infective bursitis, left knee (principal); Z68.42 Body mass index [BMI] 45.0-49.9, adult; Z96.652 Presence of left artificial knee joint; E07.9 Disorder of thyroid, unspecified; I10 Essential (primary) hypertension; E11.9 Type 2 diabetes mellitus without complications; M79.7 Fibromyalgia; Z79.84 Long term (current) use of oral hypoglycemic drugs; E66.9 Obesity, unspecified; M10.9 Gout, unspecified; B95.7 Other staphylococcus as the cause of diseases classified elsewhere
CPT/HCPCS: 36415; 80202; 82565; 82962; 85027; 87070; 87075; 87077; 87102; 87116; 87186; 87205; 87801; 97110; 97116; 97161; J2060; J2250; J2274; J2704; J3010; J3370

== ENCOUNTER 2017-12-25 17:44 | Inpatient (IN) | payer OTHER, SELFPAY ==
[2017-11-12 18:21] VITALS: BMI 45.7
[2017-12-23 09:00] VITALS: BMI 45.7
[2017-12-25] VITALS (14 sets, daily range): BP systolic 96–154; BP diastolic 54–78; PULSE 65–91; RESP 10–20; TEMP 35.9–36.8; O2SAT 94–100; BMI 45.7
--- NOTE | 2017-12-25 | DI.RAD.S_ITS ---
PROCEDURE: XR KNEE LT 1TO2V INDICATIONS: LEFT KNEE ARTHROPLASTY TECHNIQUE: 2 views of the knee were acquired. COMPARISON: [facility], , XR KNEE ARTHRITIC SERIES LT, 11/11/2017, 8:54. [facility], , KNEE SERIES LT, 02/23/2015, 11:29. [facility], , KNEE 1-2 VIEWS LEFT, 03/30/2013, 15:50. FINDINGS: Bones: No fractures or dislocations. No suspicious bony lesions. The femoral and tibial components of the left total knee arthroplasty have been removed. Molded bone cement, likely antibiotic impregnated in this clinical circumstance, has been placed in addition to a spacer at the tibial plateau area. Soft tissues: No joint effusion. No suspicious soft tissue calcifications. IMPRESSION: Arthroplasty devices removed, presumed antibiotic impregnated structures have been placed instead. A surgical drain overlies the operative bed. Dictated by: Latrell Li M.D. on 12/25/2017 at 16:33 Approved by: Latrell Li M.D. on 12/25/2017 at 16:35
[2017-12-25] MEDS: LACTATED RINGERS 1,000 ML 42 ML IV ×4 (08:42→14:00)
--- NOTE | 2017-12-25 09:49 | PM.PREOP ---
Pre-operative Note Interval Note Pre-op Check: Yes History & Physical Reviewed by Physician and Yes Exam Performed Changes: Yes
--- NOTE | 2017-12-25 11:02 | SUR.OPER ---
Supine on padded OR bed. Pillow under head, arms secured on padded armboards <90 degree abduction. Safety belt across torso. Non-operative leg secured with tape over blanket over lower leg. Operative leg secured in DeMayo/Konrad positioner. Foam padded brace at thigh of operative leg.
--- NOTE | 2017-12-25 11:56 | SUR.OPER ---
Cultures for anaerobic/aerobic taken of left knee. See orders.
[2017-12-25] MEDS: VANCOMYCIN 1,000 MG/200 ML FROZ.PIGGY 200 MG IV (13:15)
[2017-12-25] MEDS: VANCOMYCIN 1,000 MG VIAL 5000 MG INTRA-ARTI (13:38)
[2017-12-25] MEDS: TOBRAMYCIN 1.2 GM VIAL 10 GM INTRA-ARTI (13:39)
[2017-12-25] MEDS: BUPIVACAINE 0.25% W/ EPI VIAL 50 ML INJ (14:24)
[2017-12-25] MEDS: BUPIVACAINE LIPOSOME 266 MG/20 ML VIAL INJ (14:25)
--- NOTE | 2017-12-25 15:41 | SUR.PHASEI ---
Dr santillan notified pt c/o Lt ankle pain and patient reported this as normal for her. No new orders. Ice applied for comfort. Dr. Millan notified cb 221, sliding scale ordered and orders sent to pharmacy.
[2017-12-25] MEDS: INSULIN ASPART 100 UNIT/ML INSULN PEN SUBCUT ×3 (16:01→20:59)
--- NOTE | 2017-12-25 16:09 | SUR.PHASEI ---
Report called to SHELLI Tan
--- NOTE | 2017-12-25 16:28 | SUR.PHASEI ---
Pt transferred to the floor, VS stable. One small bloody spot to aamir drsg, green light flashing on drain. HV emptied, Olson emptied. belongings bag with patient.
--- NOTE | 2017-12-25 16:51 | P.OP_ITS ---
Operative Date/Time/Diagnoses Date of procedure: 12/25/17 Time of procedure: 10:35 Pre-op diagnosis: left knee deep infection, periprosthetic infection Post-op diagnosis: same Procedure & Clinicians Procedure: Left knee revision arthroplasty with placement of an antibiotic spacer. Same procedure as scheduled: Yes Indications: This is a 62-year-old female who is 5 years status post a total knee arthroplasty. She does have a history of some chronic lymphedema. She has been having some problems since July of this year when she developed subcutaneous infections and ultimately has had ongoing problems in a probable periprosthetic infection. She was seen by Infectious Disease preoperatively he knows she has multiple drug allergies and based on previous sensitivities daptomycin 8 milligrams/kilogram per day has been recommended. She is brought to the operating room for removal of her total knee arthroplasty and placement of an antibiotic spacer. Procedure alternatives risks benefits and complications and the need for 2 stage surgery was discussed in detail as well as the plan for prolonged antibiotics postoperatively IV and restricted mobility postoperatively was all discussed in detail. Surgeon: Alise Stokes Court Collections Officer: Meagan Dasilva Anesthesia Type: General and Spinal Operative Notes Findings: Deep infection extending down to the proximal tibia. Moderate thickening of the knee capsule. Component removed without difficulty and with minimal bone loss. Densely adherent cement to the underlying bone. Closure Type: primary Specimen(s): other (Multiple cultures and PCR.) Implants & Drains: Biomet stage I femoral cement spacer mold mL 65 AP 48, tibial cement spacer mold mL 70, AP 42 Applied: catheter Estimated Blood Loss (mL): 400 Blood products transfused: none Tourniquet time (min): 120 Procedure in detail: The patient was seen in the pre-operative area, where the patient identified the left knee as the operative site and this was marked with my initials. The patient received pre-operative antibiotics, and was taken to the operating room and placed on the operative table in the supine position. After satisfactory anesthesia, a full stack java developer out was performed. The left leg was encircled with a tourniquet about the proximal thigh, and the leg was prepared from the toes to the tourniquet with ChloroPrep in the usual fashion and draped through sterile drapes. The leg was elevated and exsanguinated with Eschmark bandage and the tourniquet inflated to [250] mmHg pressure. The knee was approached through an approximately 20 cm incision centered over the patella and carried into the knee through a medial parapatellar arthrotomy. There was significant soft tissue swelling in the pretibial area and essentially a sinus tracking down to the tibia. The sinus tract and the inflamed tissue was carefully resected. Soft tissue was carefully mobilized around the patella. And extensive synovectomy was performed removing markedly inflamed and thickened synovium from both the medial and lateral gutter re- establishing the gutter as well as off the quadriceps mechanism and patellar tendon mechanism. The patella was meticulously visualized. A saw was used to resect at the junction of the cement and patellar component. The patella was very firmly attached to the underlying cement mantle and the cement mantle was specifically very firmly attached to the underlying bone. The pegs were meticulously removed as was all cement in order to completely be contaminate the patella. Tissue was sent from underneath the patella as well as synovium for culture and sensitivity. A micro saw was used as well as multiple osteotomes tones to meticulously free the femoral component. Cultures were sent deep to the femoral component as well as in the notch region. Femur was removed with minimal bone loss. The polyethylene was removed prior to removing the femur. All cement was meticulously removed from the distal aspect of the femur. There was no evidence of femoral loosening. The canal was specifically checked irrigated and a small amount of soft tissue was removed. A Biomet trial spacer femur was placed and a 65 x 48 mm femur was selected. Antibiotics including tobramycin and vancomycin were mixed in a cement and the cements femoral spacer was made on the back table. The tibia was meticulously removed and carefully freed. It was relatively easy to free the tibia from the underlying cement mantle. The femur was carefully mobilized and the tibia was mobilized in order to allow removing the tibial component. Cement was densely adherent to the underlying tibial bone. Combination of osteotomes curette as Bonita a drill as well as cement splitting equipment and more Maureen hand tools was used to remove all cement from the tibia. Cultures were sent from the tibia as well as the tibial canal. There was areas of mild softening and atypical appearing bone under the tibial component. The bone was meticulously cleaned removing all foreign body any abnormal softened bone and all cement. Tourniquet was deflated at 2 hr. The bone was carefully cleaned with pulse lavage. A tibial size 70 x 42 Biomet stage I cement mold, thickness 10 component was made on the back table. Tourniquet was reinflated briefly during cementing. The antibiotic spacers were cemented into place without difficulty. Several checks of the both gutters posterior gutter and the entire knee was performed in order to make sure that all infectious material and cement had been removed. The patella was recheck and additionally slightly debrided. Tourniquet was deflated hemostasis was achieved. Wound was closed with monofilament PDS over a drain. On the medial aspect of the knee there were some cavities tracking medially both of those were meticulously irrigated and debrided and a pulse lavage was used during surgery. A 2nd drain was placed in the subcutaneous tissues. Subcutaneous tissues were closed with monofilament absorbable sutures and a combination of skin palma and a retention nylon stitch was placed in the pretibial area after excising what was essentially a sinus track. The wound was dressed sterilely. Debby dressing was applied. Patient was placed in a knee immobilizer. She was placed through a gentle range of motion and the components were noted to be stable from 0 to about 90?. The tibia was prepared and the visionaire guide fit well to the distal tibia. The rotation was assessed. The patient was placed in extension dressing was applied and the patient was taken to recovery having tolerated the procedure well. Complications: none Condition: stable Disposition: Acute Care Plan for aftercare: IV antibiotics for 6 weeks postoperatively with a plan for daptomycin 8 milligrams/kilogram 1 time per day. Follow-up with me and Infectious Disease at [facility] doctor Eld[place]. Patient may be partial weight-bearing on the left lower extremity. We are going to get a knee immobilizer that fits her leg she should have it locked when she is attempting to ambulate but can have gentle motion when she is in a seated position.
[2017-12-25] MEDS: LACTATED RINGERS 1,000 ML 125 ML IV (17:14)
[2017-12-25] MEDS: METFORMIN 850 MG TABLET PO (18:38)
[2017-12-25] MEDS: OXYCODONE IR 5 MG TABLET PO ×2 (19:49→23:57)
[2017-12-25] MEDS: ASPIRIN EC 81 MG TABLET PO (19:50)
[2017-12-25] MEDS: ACETAMINOPHEN 325 MG TABLET 975 MG PO (19:50)
[2017-12-25] MEDS: DOCUSATE 100 MG CAPSULE PO (19:50)
[2017-12-25] MEDS: POTASSIUM CHLORIDE 10 MEQ TAB PO (19:51)
[2017-12-25] MEDS: HYDROCODONE/ACET 5/325 TABLET 1 TAB PO (21:54)
[2017-12-25 23:38] LABS: Add Manual Diff / Slide Review NO; Basophils Percent Auto 0.2 % (0-2); Hematocrit 28.1 % (36-46); Hemoglobin 9.3 g/dL (12.0-16.0); Lymphocytes Percent Auto 12.9 % (25-40); Mean Corpuscular HGB Conc 33.1 % (30-36); Mean Corpuscular Hemoglobin 24.9 PG (26-34); Mean Corpuscular Volume 75.3 fL (80-100); Monocytes Percent Auto 8.7 % (3-14); Neutrophils Absolute Auto 6900 /uL (3000-5900); Neutrophils Percent Auto 78.2 % (50-75); Platelet Count 201 X10^3/uL (150-400); Red Blood Cell Count 3.73 X10^6/uL (4.0-5.2); Red Cell Distribution Width 16.6 % (11.6-14.8); White Blood Cell Count 8.8 X10^3/uL (4.5-11.0)
[2017-12-26] VITALS (7 sets, daily range): BP systolic 96–123; BP diastolic 43–79; PULSE 68–86; RESP 15–18; TEMP 36.3–36.7; O2SAT 96–99
[2017-12-26] MEDS: LACTATED RINGERS 1,000 ML 125 ML IV (01:16)
[2017-12-26] MEDS: HYDROCODONE/ACET 5/325 TABLET 1 TAB PO ×4 (02:10→20:55)
[2017-12-26] MEDS: OXYCODONE IR 5 MG TABLET PO (05:33)
--- NOTE | 2017-12-26 06:48 | PC.NURSE ---
shift note met with pt at start of shift. pt is AOx3. Resp: 95- 97% on 1L. Put at 1/2L, remained same. Put on RA and dropped to 88% when asleep. Put back on 1L. 96%. Reports pain 6. Provided PRN pain meds. Call light in hand
--- NOTE | 2017-12-26 07:55 | PM.PNPO.1 ---
Subjective Date Patient Seen: 12/26/17 Interval history: Patient seen bedside s/p hardware removal and placement of antibiotic spacer POD #1. Patient is doing well, she needs 6 weeks of IV antibiotics with daptomycin per ID. She will need a PICC line and to go to a SNF for treatment. Exam Vital Signs (past 8 hours): - 12/26/17 03:13 Temperature 97.6 F Pulse Rate 83 Respiratory Rate 18 Blood Pressure 113/79 Pulse Oximetry 99 Oxygen Delivery Method Nasal Cannula Oxygen Flow Rate 2 Narrative Exam Narrative: WDWN NAD A&Ox3. Slight swelling and redness in operative leg but calf is soft and compressible. FROM of the ankle. Currently wearing a standard knee brace over the surgical dressing. Objective Labs Result Diagrams: 12/25/17 23:15 Labs: Laboratory Results - last 24 hr 12/25/17 23:15 WBC 8.8 RBC 3.73 L Hgb 9.3 L Hct 28.1 L MCV 75.3 L MCH 24.9 L MCHC 33.1 RDW 16.6 H Plt Count 201 Neut % (Auto) 78.2 H Lymph % (Auto) 12.9 L [place] % (Auto) 8.7 Eos % (Auto) 0.0 L Baso % (Auto) 0.2 Neut # (Auto) 6900 H Assessment & Plan Post-op Postoperative Procedures Operation Date: 12/25/17 10:15 Actual Procedures Side Surgeon p Total Knee Arthroplasty Removal of hardware/implants, reimplatation of antibiotic spacers Left Alise Stokes MD 1. Continue treatment with IV abx and pain medication 2. Partial (25%) weightbearing on surgical leg, must wear locked knee brace while ambulating 3. May remove brace while in bed for gentle ROM exercises 4. PICC line ordered 5. Needs locking brace, currently in standard knee brace 6. D/c to SNF after 3 night stay
[2017-12-26] MEDS: DOCUSATE 100 MG CAPSULE PO ×2 (08:01→20:55)
[2017-12-26] MEDS: ACETAMINOPHEN 325 MG TABLET 975 MG PO (08:01)
[2017-12-26] MEDS: METFORMIN 850 MG TABLET PO ×2 (08:01→16:53)
[2017-12-26] MEDS: MULTIVITAMIN 1 TABLET 1 TAB PO (08:02)
[2017-12-26] MEDS: ATENOLOL 50 MG TABLET PO (08:02)
[2017-12-26] MEDS: ASPIRIN EC 81 MG TABLET PO ×2 (08:02→20:55)
[2017-12-26] MEDS: hydroCHLOROthiazide 25 MG TABLET 50 MG PO (08:03)
[2017-12-26] MEDS: IBUPROFEN 600 MG TABLET PO (08:35)
[2017-12-26] MEDS: INSULIN ASPART 100 UNIT/ML INSULN PEN SUBCUT ×3 (08:36→16:53)
--- NOTE | 2017-12-26 08:39 | CM.DANOTE ---
DCP: Case received, EMR reviewed and met with patient. Introduced self and role. DCP template completed with information currently available. Patient is a 62 year old female who was admitted yesterday afternoon to the care of the hospitalist team. PCP: Dr. Danielle. Payer: confirmed: [facility] Patient came to hospital post total knee approximately 5 years ago. Patient ended up with an infection down to the proximal tibia. Had surgery yesterday, total knee arthoplasty. Lives in [place] with her . Patient stated that she will need rehab, and has chosen [facility] or [facility]. Patient will be on IV antibiotics for several weeks. She also has a drain. Has [employer] Medicare Advantage as well. Gave patient Medicare Choice list. P: Discuss with patient facility of choice, call [facility] and fax notes. Contact facility that patient chooses. Clarissa Larios RN/Design Manager
--- NOTE | 2017-12-26 10:00 | PT.IIE ---
Current Diagnoses Other infective bursitis, left knee (12/25/17) Presence of left artificial knee joint (12/25/17) Surgery Performed Operation Date: 12/25/17 10:15 Actual Procedures p Total Knee Arthroplasty Removal of hardware/implants, reimplatation of antibiotic spacers(Left) - Alise Stokes MD Surgical History (Last Updated 12/23/17 @ 10:37 by Adriana Montana, RN) H/O arthrodesis (Acute) H/O: (Acute) History of incision and drainage (Acute ~10/2017) History of total knee arthroplasty (Acute 03/30/13) History of total left knee replacement (Acute) S/P bunionectomy (Acute) S/P foot surgery, left (Acute) Medical History (Last Updated 12/23/17 @ 10:34 by Adriana Montana, RN) Arthritis (Acute) Cellulitis of knee, left (Acute) Diabetes (Acute) Failure of total knee replacement (Acute) Fibromyalgia (Acute) Hypertension (Acute) Local infection of skin and subcutaneous tissue (Acute) Malaise (Acute) Other infective bursitis, left knee (Acute) Thyroid disease (Acute) Physical Therapy Inpatient Evaluation/Re-Eval M1 PT/OT-IP Prior Functional Status Start: 12/26/17 11:38 Freq: Status: Active Protocol: Document 12/26/17 10:00 RCC (Rec: 12/26/17 11:56 [facility] [id number]) Medical Review Prior Functional Status Medical History Reviewed Yes Communication WNL Mobility and Gait modified indep gait with FWW Social History Household Members spouse children Living Arrangements House Number of Floors (Floors) One Floor Number of Stairs To Enter/Railing? ramped entry Home Environment High Toilet Walk in Shower Ramp Home Equipment Front Wheel Walker Employment Status Retired M2 PT-IP Current Condition Start: 12/26/17 11:38 Freq: Status: Active Protocol: Document 12/26/17 10:00 RCC (Rec: 12/26/17 11:56 [facility] [id number]) Physical Therapy Current Condition Current Condition Evaluation Date 11/13/17 Treatment Diagnosis Revision L TKA, impaired mobility Onset Date 12/25/17 Precautions Brace Order for locking knee brace L knee (currently wearing a knee immobilizer). Weight Bearing Status Weight Bearing Status Partial Weight Bearing Allowed Weight Bearing Amount (enter % 25% WB on the LLE. Locked or #) (%) when ambulating, gention motion in seated position allowed as tolerated with brace unlocked. M3 PT-IP Subjective Start: 12/26/17 11:38 Freq: Status: Active Protocol: Document 12/26/17 10:00 RCC (Rec: 12/26/17 11:56 [facility] [id number]) Subjective Physical Therapy Visit Type Type Initial Evaluation Visit Start Time 09:00 Visit Stop Time 10:00 Total Visit Minutes 60 Number of INTERIOR SYSTEMS CARPENTER Visits 0 Physical Therapy Visit Comments Patient Comments Pt states the brace felt better after moving around. Therapy Pain Assessment Location Left Knee Intensity 2 Scale Used Numeric (1 - 10) M4 PT-IP Mobility and Gait Start: 12/26/17 11:38 Freq: Status: Active Protocol: Document 12/26/17 10:00 RCC (Rec: 12/26/17 11:56 [facility] [id number]) PT-Bed Mobility Assessment Supine to Sit Supine to Sit Moderate Assistance 1 Person Assistance Bedrails Scooting Scooting to Edge of Bed Minimal Assistance PT-Transfer Assessment Sit to and From Stand Sit to and from Stand Minimal Assistance 1 Person Assistance Use of Upper Extremities Equipment Transfer Assistive Device Gait Belt Front Wheeled Walker Transfers Transfer Destination Chair Transfer Technique Lateral Scoot Transfer Ability Level of Assist Contact Guard Assistance 1 Person Assistance Comments Mobility Comments alternating R foot heel/toe scoot to the chair to the R ( did not place LLE in WB- orders no greater than 25% WB) PT-Balance Assessment Sitting Balance and Reactions Static Sitting Balance Ability Good Dynamic Sitting Balance Ability Good Standing Balance and Reactions Static Standing Balance Ability Fair Dynamic Standing Balance Ability Fair Device Used FWW M5 PT-IP Objective Assessments Start: 12/26/17 11:38 Freq: Status: Active Protocol: Document 12/26/17 10:00 RCC (Rec: 12/26/17 11:56 [facility] [id number]) Orientation Orientation/Cognition Level of Alertness Alert Orientation Name Age Birthday Month Date Year Day of Week Place Situation Gross Range of Motion Lower Extremity ROM Impairments L knee in locked-hinged brace Strength Comments Strength Comments unable to perform SLR on LLE M6 PT-IP Treatment Start: 12/26/17 11:38 Freq: Status: Active Protocol: Document 12/26/17 10:00 RCC (Rec: 12/26/17 11:56 [facility] [id number]) Physical Therapy Treatment Exercises Exercises Ankle Pumps Education Education Provided Precautions Weight Bearing Status Safety Equipment Issued Equipment Type and Company This PT issued XL Tele-range post-op brace from [employer] with hinge locked @ 0 degrees- PAC checked positioning, okayed it for use . M7 PT-IP Assessment and Plan Start: 12/26/17 11:38 Freq: Status: Active Protocol: Document 12/26/17 10:00 RCC (Rec: 12/26/17 11:56 [facility] [id number]) PT Summary Assessment and Plan Potential Rehabilitation Potential Good Status of Condition at Evaluation Evolving Summary Impairments Pain ROM Strength Balance Bed Mobility Transfers Gait Activity Tolerance Assessment Summary POD #1 revision of L TKA. Orders for 25% WB only on the LLE and locked hinged brace @ 0 degrees when ambulating. Pt tolerated transfer well, and did not use >25% of WB on the LLE. At this time, pt's mobility is significantly limited and is unable to mobilize without physical assistance. She will greatly benefit from SNF rehabilitation upon d/c. Goals Bed Mobility Goal Standby Assistance Transfer Goal Standby Assistance Front Wheeled Walker Gait Goal Standby Assistance Front Wheel Walker Gait Distance 25 Frequency of Treatment Frequency Of Treatment Twice a Day Treatment Plan Physical Therapy Treatment Plan Bed Mobility Training Transfer Training Gait Training Therapeutic Exercise Balance Retraining Post Op Education Discharge Planning Hot or Cold Pack Neuromuscular Re-ed Recommendations To Nursing Amount of Assist Needed 1 Person Assist Discharge Recommendations PT Discharge Recommendations SNF Rehab
--- NOTE | 2017-12-26 10:39 | CM.DPC ---
DCP Cont: Spoke to Harper at [facility]. Had not yet opened patient for a case, so went ahead and gave her information on patient. Also faxed over clinicals regarding patient, mentioning that a PICC line may be placed Thursday. Stated that a nurse would call back and review information. Have already confirmed with Gordon at [facility], that there is availability, but will re-confirm with patient if she decides on [facility]. P: DCP to continue to assess. Plan is for patient to go to skilled rehab facility. Will need a few weeks of IV antibiotics. Clarissa Larios RN/Aviation Operations Specialist
[2017-12-26] MEDS: LOSARTAN 50 MG TABLET 100 MG PO (10:49)
--- NOTE | 2017-12-26 11:14 | CM.DANOTE ---
DCP Cont: Spoke to patient, she decided that [facility] is her place of choice. Stated that she has a friend that is a nurse practitioner that works there. Went ahead and notified Gordon of [facility] as well. Patient stated that they may be placing PICC line today. P: DCP continue to assess. Plan is for patient to go to [facility]. Clarissa Larios RN/Tumor Registrar
--- NOTE | 2017-12-26 14:57 | DI.RAD.S_ITS ---
PROCEDURE: XR CHEST 1V INDICATIONS: confirm picc line placement TECHNIQUE: One view of the chest was acquired. COMPARISON: None. FINDINGS: Surgical changes and devices: There is a right PICC, the tip of which is curved slightly medially and presumably posteriorly. This suggests the tip may be in the azygos vein. Lungs and pleura: No pleural effusions or pneumothorax. Lungs are clear. Mediastinum: Mediastinal contours appear normal. Heart size is normal. Bones and chest wall: No suspicious bony lesions. Overlying soft tissues appear unremarkable. IMPRESSION: No acute cardiopulmonary findings. Right PICC, the tip of which may be in the azygos vein. Consider repositioning the PICC tip. Dictated by: Chacha Love M.D. on 12/26/2017 at 16:39 Approved by: Chacha Love M.D. on 12/26/2017 at 16:40
[2017-12-26] MEDS: POTASSIUM CHLORIDE 10 MEQ TAB PO (15:57)
--- NOTE | 2017-12-26 15:58 | PC.NURSE ---
Ortho: Several issues clarified today. First - immobilizer request - clarified from hcp what the immobilizer was that was needed to accomplish the patients therapy and this was relayed to PT who was able to get an immobilizer which fit and was locking. Pt is aware the immobilzer is to be locked when she is out of bed and up. Can be unlocked at night/in bed. Second - weight bear status - hcp reported weight bear status was 25% of the patients body weight. Third - medication regime and tylenol use. Pt doesn't want to use oxycodone, makes her itchy and she doesn't like how it makes her feel. Discussed max dose of tylenol/q24hrs. Discussed options with pt and then hcp called and see new orders. Routine tylenol use was d/c. May have the hydrocodone 1 - 2 depending on pain level q4 hours as needed. Pt reports she is satisfied with the solution. Discussed home plan and pt is to receive 6 weeks of IV antibiotic therapy. Order obtained for PIC line placement. Same is in the process of placement. Has worked w/PT x2 today. Sat in the chair for a couple of hours. Ortho hernandez, has strong ppp, brisk cap refill, feet =/warm. Immobilizer is on. Resting quietly.
--- NOTE | 2017-12-26 17:08 | DI.RAD.S_ITS ---
PROCEDURE: XR CHEST FOR PICC 1V INDICATIONS: PICC Placement COMPARISON: [facility], , XR CHEST 1V, 12/26/2017, 15:15. FINDINGS: The right PICC has been repositioned and the tip is now projected over the cavoatrial junction. IMPRESSION: Tip of PICC is projected over the cavoatrial junction. No acute cardiopulmonary findings. Dictated by: Chacha Love M.D. on 12/26/2017 at 19:00 Approved by: Chacha Love M.D. on 12/26/2017 at 19:00
--- NOTE | 2017-12-26 18:00 | PT.IPTN ---
Current Diagnoses Other infective bursitis, left knee (12/25/17) Presence of left artificial knee joint (12/25/17) Surgery Performed Operation Date: 12/25/17 10:15 Actual Procedures p Total Knee Arthroplasty Removal of hardware/implants, reimplatation of antibiotic spacers(Left) - Alise Stokes MD Physical Therapy Treatment Note M2 PT-IP Current Condition Start: 12/26/17 11:38 Freq: Status: Active Protocol: Document 12/26/17 18:00 RCC (Rec: 12/26/17 18:05 [facility] [id number]) Physical Therapy Current Condition Current Condition Evaluation Date 11/13/17 Treatment Diagnosis Revision L TKA, impaired mobility Onset Date 12/25/17 Precautions Brace Order for locking knee brace L knee (currently wearing a knee immobilizer). Weight Bearing Status Weight Bearing Status Partial Weight Bearing Allowed Weight Bearing Amount (enter % 25% WB on the LLE. Locked or #) (%) when ambulating, gention motion in seated position allowed as tolerated with brace unlocked. M3 PT-IP Subjective Start: 12/26/17 11:38 Freq: Status: Active Protocol: Document 12/26/17 18:00 RCC (Rec: 12/26/17 18:05 [facility] [id number]) Subjective Physical Therapy Visit Type Type Treatment Note Visit Start Time 17:40 Visit Stop Time 18:00 Total Visit Minutes 20 Number of LABOR CONTRACT ANALYST Visits 0 Physical Therapy Visit Comments Patient Comments Pt wants to get back to bed. M4 PT-IP Mobility and Gait Start: 12/26/17 11:38 Freq: Status: Active Protocol: Document 12/26/17 18:00 RCC (Rec: 12/26/17 18:05 [facility] [id number]) PT-Bed Mobility Assessment Sit to Supine Sit to Supine Moderate Assistance 1 Person Assistance Scooting Scooting to Edge of Bed Minimal Assistance PT-Transfer Assessment Sit to and From Stand Sit to and from Stand Minimal Assistance 1 Person Assistance Use of Upper Extremities Equipment Transfer Assistive Device Gait Belt Front Wheeled Walker Orthotic/Prosthetic Devices or Brace: Yes Transfers Transfer Destination Bed Transfer Technique Lateral Scoot Transfer Ability Level of Assist Minimal Assistance 1 Person Assistance Use of Upper Extremities Comments Mobility Comments locked hinged brace LLE in extension, 1 episode of increased weight on LLE (>25%) but mainly TT to NWB throughout session. M5 PT-IP Objective Assessments Start: 12/26/17 11:38 Freq: Status: Active Protocol: Document 12/26/17 10:00 RCC (Rec: 12/26/17 11:56 [facility] [id number]) Orientation Orientation/Cognition Level of Alertness Alert Orientation Name Age Birthday Month Date Year Day of Week Place Situation Gross Range of Motion Lower Extremity ROM Impairments L knee in locked-hinged brace Strength Comments Strength Comments unable to perform SLR on LLE M6 PT-IP Treatment Start: 12/26/17 11:38 Freq: Status: Active Protocol: Document 12/26/17 18:00 RCC (Rec: 12/26/17 18:05 [facility] [id number]) Physical Therapy Treatment Education Education Provided Precautions Weight Bearing Status Safety M7 PT-IP Assessment and Plan Start: 12/26/17 11:38 Freq: Status: Active Protocol: Document 12/26/17 18:00 RCC (Rec: 12/26/17 18:05 [facility] [id number]) PT Summary Assessment and Plan Summary Progress Towards Goals Slow Progress due to Pain Slow Progress due to Activity Tolerance Assessment Summary POD #1 revision L TKA. Pt in her hinged knee brace on the LLE, locked into extension. Pt did have an episode requiring VC for decreased WB on the LLE when moving backward, but maintained WB status the rest of the session. Pt with greater difficulty transferring to the L compared to the R. Goals Bed Mobility Goal Standby Assistance Transfer Goal Standby Assistance Front Wheeled Walker Gait Goal Standby Assistance Front Wheel Walker Gait Distance 25 Frequency of Treatment Frequency Of Treatment Twice a Day Treatment Plan Physical Therapy Treatment Plan Bed Mobility Training Transfer Training Gait Training Therapeutic Exercise Balance Retraining Post Op Education Discharge Planning Hot or Cold Pack Neuromuscular Re-ed Other Recommendations and Next Treatment prog. transfers. Focus Recommendations To Nursing Amount of Assist Needed 1 Person Assist Discharge Recommendations PT Discharge Recommendations SNF Rehab
--- NOTE | 2017-12-26 18:24 | PC.NURSE ---
1630 Daniel called due to radiology report recommending repositioning of newly placed PICC line. They requested additional x-ray before attempting repositioning. Spoke with Adam in radiology and will await arrival of Daniel. 181: Daniel arrived and xray called.
--- NOTE | 2017-12-26 18:49 | PC.NURSE ---
Addendum entered by Kelli Bass R.N. 12/26/17 22:24: Pt did not need any coverage for night time after dinner. Pt arouses to voice. given pain pill per MAR. will continue to monitor. Original Note: Addendum entered by Kelli Bass R.N. 12/26/17 19:11: second XRAY showed catheter tip was in the correct place- showed to [facility] rep who placed PICC and she stated it was OK too use. Original Note: Assumed care of pt from outgoing shift at 1500 9-1-. [facility] in to place PICC line. 1600- Pt awake and alert. sitting up in chair. call light and belongings within reach. PT in to get pt back to bed. Pt ate dinner in chair. uses call light. two hemovacs to left knee- one medially and one laterally. Pt also has aamir dressing. minimal spots of drainage. Pt uses call light. compliant with nursing care. will continue to monitor. 1630- PICC line placed, per XRAY- not in correct spot potentially- called [facility] (SEE ZACK's note). 1830- [facility] back in to assess situation. another XRAy taken and [facility] stated that she had the pt in a slightly different position. will continue to monitor.
[2017-12-27] VITALS (8 sets, daily range): BP systolic 99–134; BP diastolic 45–67; PULSE 66–84; RESP 12–18; TEMP 36.4–36.8; O2SAT 93–99
--- NOTE | 2017-12-27 00:50 | PC.NURSE ---
Addendum entered by Lisa Ross R.N. 12/27/17 03:21: at 0300, pt complained of neck ache. Flushed PICC, and checked for blood return. No resistance. Provided pt with PRN hydrocodone for neck and left knee pain. Original Note: Shift Note Met with pt at start of shift. AOx3. Denies pain. 97% on RA. Blood pressure hypotensive. 96/56. An hour later 112/ 49. Encouraged fluids. Bed alarm on. Will continue to monitor. Pt reports passing gas, no BM since prior to surgery. Olson is draining. Debby dressing with minimal scant drainage. Call light in hand.
[2017-12-27] MEDS: HYDROCODONE/ACET 5/325 TABLET 1 TAB PO ×3 (02:58→12:36)
[2017-12-27] MEDS: DOCUSATE 100 MG CAPSULE PO ×2 (07:55→21:14)
[2017-12-27] MEDS: METFORMIN 850 MG TABLET PO ×2 (07:55→17:14)
[2017-12-27] MEDS: hydroCHLOROthiazide 25 MG TABLET 50 MG PO (07:55)
[2017-12-27] MEDS: ASPIRIN EC 81 MG TABLET PO ×2 (07:56→21:14)
[2017-12-27] MEDS: LOSARTAN 50 MG TABLET 100 MG PO (07:56)
[2017-12-27] MEDS: MULTIVITAMIN 1 TABLET 1 TAB PO (07:57)
[2017-12-27] MEDS: INSULIN ASPART 100 UNIT/ML INSULN PEN SUBCUT ×3 (07:59→17:13)
[2017-12-27] MEDS: ATENOLOL 50 MG TABLET PO (08:07)
[2017-12-27] MEDS: IBUPROFEN 600 MG TABLET PO ×2 (08:08→21:15)
--- NOTE | 2017-12-27 10:50 | PT.IPTN ---
Current Diagnoses Other infective bursitis, left knee (12/25/17) Presence of left artificial knee joint (12/25/17) Surgery Performed Operation Date: 12/25/17 10:15 Actual Procedures p Total Knee Arthroplasty Removal of hardware/implants, reimplatation of antibiotic spacers(Left) - Alise Stokes MD Physical Therapy Treatment Note M2 PT-IP Current Condition Start: 12/26/17 11:38 Freq: Status: Active Protocol: Document 12/26/17 18:00 RCC (Rec: 12/26/17 18:05 [facility] [id number]) Physical Therapy Current Condition Current Condition Evaluation Date 11/13/17 Treatment Diagnosis Revision L TKA, impaired mobility Onset Date 12/25/17 Precautions Brace Order for locking knee brace L knee (currently wearing a knee immobilizer). Weight Bearing Status Weight Bearing Status Partial Weight Bearing Allowed Weight Bearing Amount (enter % 25% WB on the LLE. Locked or #) (%) when ambulating, gention motion in seated position allowed as tolerated with brace unlocked. M3 PT-IP Subjective Start: 12/26/17 11:38 Freq: Status: Active Protocol: Document 12/27/17 10:50 AB (Rec: 12/27/17 12:32 AB [id number]) Subjective Physical Therapy Visit Type Type Treatment Note Visit Start Time 10:50 Visit Stop Time 11:28 Total Visit Minutes 38 Number of COKE DRAWER Visits 0 Physical Therapy Visit Comments Patient Comments pt agreeable to get up Therapy Pain Assessment Pain When Pain Assessed During Mobility Pain Present Pain Present Pain Reported Location Left Knee Scale Used pain scale not stated Pain Management Techniques Re-positioning M4 PT-IP Mobility and Gait Start: 12/26/17 11:38 Freq: Status: Active Protocol: Document 12/27/17 10:50 AB (Rec: 12/27/17 12:32 AB [id number]) PT-Bed Mobility Assessment Supine to Sit Supine to Sit Maximum Assistance PT-Transfer Assessment Sit to and From Stand Sit to and from Stand Minimal Assistance Moderate Assistance 1 Person Assistance Use of Upper Extremities Equipment Transfer Assistive Device Gait Belt Front Wheeled Walker Transfers Transfer Destination Chair Transfer Technique Stand Step Pivot Transfer Ability Level of Assist Minimal Assistance Moderate Assistance Comments Mobility Comments L knee hinged braced adjusted and repositioned appropriately prior to getting out of bed. Pt was able to maintain PWB 25 % on LLE with cues. pt demonstrated NWB on LLE during stand step pivot transfer. M5 PT-IP Objective Assessments Start: 12/26/17 11:38 Freq: Status: Active Protocol: Document 12/26/17 10:00 RCC (Rec: 12/26/17 11:56 [facility] [id number]) Orientation Orientation/Cognition Level of Alertness Alert Orientation Name Age Birthday Month Date Year Day of Week Place Situation Gross Range of Motion Lower Extremity ROM Impairments L knee in locked-hinged brace Strength Comments Strength Comments unable to perform SLR on LLE M6 PT-IP Treatment Start: 12/26/17 11:38 Freq: Status: Active Protocol: Document 12/27/17 10:50 AB (Rec: 12/27/17 12:32 AB [id number]) Physical Therapy Treatment Exercises Exercises Ankle Pumps Quad Sets Education Education Provided Precautions Weight Bearing Status Safety M7 PT-IP Assessment and Plan Start: 12/26/17 11:38 Freq: Status: Active Protocol: Document 12/27/17 10:50 AB (Rec: 12/27/17 12:32 AB [id number]) PT Summary Assessment and Plan Potential Rehabilitation Potential Good Summary Impairments Pain ROM Strength Balance Bed Mobility Transfers Gait Activity Tolerance Progress Towards Goals Slow Progress due to Medical Issues Assessment Summary pt requiring max A with bed mobility. Able to transfer with min to mod A and cues using FWW. pt stated that she has arthritis on her R knee as well limiting mobility as well. pt requires SNF rehab at this time to improve strength and functional independence. Goals Bed Mobility Goal Standby Assistance Transfer Goal Standby Assistance Front Wheeled Walker Gait Goal Standby Assistance Front Wheel Walker Gait Distance 25 Frequency of Treatment Frequency Of Treatment Twice a Day Treatment Plan Physical Therapy Treatment Plan Bed Mobility Training Transfer Training Gait Training Therapeutic Exercise Balance Retraining Post Op Education Discharge Planning Hot or Cold Pack Neuromuscular Re-ed Recommendations To Nursing Amount of Assist Needed 1 Person Assist Discharge Recommendations PT Discharge Recommendations SNF Rehab
--- NOTE | 2017-12-27 11:21 | CM.DPC ---
Addendum entered by Clarissa Larios R.N. 12/27/17 11:41: Loan from [facility] left a message. Stated that she had not seen approval for surgery authorization, and found it. Stated that she should be approved, and to call her within 1 or 2 days of discharge so she can be approved. Original Note: DCP Cont: Called [facility] to follow up on authorization status. Already faxed updated physical therapy notes from yesterday. Found out that Loan at [facility] is case aide. Stated that they were reviewing it. Stated that the concerned is that this was a planned procedure. Let he know that this was secondary to visit at ortho office, and was referred to hospital secondary to symptoms of swelling and redness. Also let he know that she is receiving IV antibiotics, and 25% weight bearing. Stated that this would be reviewed. Stated that she will not be in office tomorrow, Thursday, but can still call week-end line. Is also requesting that we continue to fax updated P.T. notes, or any notes that may help. P: DCP continue to follow up with [facility] to note if authorized, for plan is for patient to go to [facility]. Clarissa Larios RN/Community Living Instructor
--- NOTE | 2017-12-27 11:28 | PM.PNPO.1 ---
Subjective Date Patient Seen: 12/27/17 Time Patient Seen: 11:28 Interval history: The patient reports she is doing well. Pain is controlled. No specific problems. Exam Vital Signs (past 8 hours): - 12/27/17 08:00 Temperature 97.8 F Pulse Rate 84 Respiratory Rate 15 Blood Pressure 134/67 Pulse Oximetry 97 Oxygen Delivery Method Room Air Oxygen Flow Rate 0 Extrem Other: Dressing is dry. There is expected swelling. Braces in place. The leg is neurovascularly intact. Objective Labs Result Diagrams: 12/25/17 23:15 Assessment & Plan Post-op Postoperative Procedures Operation Date: 12/25/17 10:15 Actual Procedures Side Surgeon p Total Knee Arthroplasty Removal of hardware/implants, reimplatation of antibiotic spacers Left Alise Stokes MD Postoperative plan narrative: Patient is progressing as expected after surgery. [facility] of IV antibiotics tomorrow. Time Spent With Patient less than 15 minutes
--- NOTE | 2017-12-27 14:01 | PT.IPTN ---
Current Diagnoses Other infective bursitis, left knee (12/25/17) Presence of left artificial knee joint (12/25/17) Surgery Performed Operation Date: 12/25/17 10:15 Actual Procedures p Total Knee Arthroplasty Removal of hardware/implants, reimplatation of antibiotic spacers(Left) - Alise Stokes MD Physical Therapy Treatment Note M2 PT-IP Current Condition Start: 12/26/17 11:38 Freq: Status: Active Protocol: Document 12/26/17 18:00 RCC (Rec: 12/26/17 18:05 RCC [id number]) Physical Therapy Current Condition Current Condition Evaluation Date 11/13/17 Treatment Diagnosis Revision L TKA, impaired mobility Onset Date 12/25/17 Precautions Brace Order for locking knee brace L knee (currently wearing a knee immobilizer). Weight Bearing Status Weight Bearing Status Partial Weight Bearing Allowed Weight Bearing Amount (enter % 25% WB on the LLE. Locked or #) (%) when ambulating, gention motion in seated position allowed as tolerated with brace unlocked. M3 PT-IP Subjective Start: 12/26/17 11:38 Freq: Status: Active Protocol: Document 12/27/17 13:40 CLB (Rec: 12/27/17 14:01 CLB [id number]) Subjective Physical Therapy Visit Type Type Treatment Note Visit Start Time 13:10 Visit Stop Time 13:40 Total Visit Minutes 30 Number of BELT SEWER Visits 1 Physical Therapy Visit Comments Patient Comments Pt wanting to get back to bed. Therapy Pain Assessment Pain When Pain Assessed During Mobility Pain Present Pain Present Pain Reported Location Left Knee Scale Used pain scale not stated Pain Management Techniques Re-positioning M4 PT-IP Mobility and Gait Start: 12/26/17 11:38 Freq: Status: Active Protocol: Document 12/27/17 13:40 CLB (Rec: 12/27/17 14:01 CLB [id number]) PT-Bed Mobility Assessment Sit to Supine Sit to Supine Moderate Assistance 1 Person Assistance Bedrails PT-Transfer Assessment Sit to and From Stand Sit to and from Stand Minimal Assistance Moderate Assistance 1 Person Assistance Use of Upper Extremities Equipment Transfer Assistive Device Gait Belt Front Wheeled Walker Transfers Transfer Destination Bed Transfer Technique Lateral Scoot Transfer Ability Level of Assist Minimal Assistance Moderate Assistance Comments Mobility Comments Pt able to keep WB status during transfer. M5 PT-IP Objective Assessments Start: 12/26/17 11:38 Freq: Status: Active Protocol: Document 12/26/17 10:00 RCC (Rec: 12/26/17 11:56 RCC [id number]) Orientation Orientation/Cognition Level of Alertness Alert Orientation Name Age Birthday Month Date Year Day of Week Place Situation Gross Range of Motion Lower Extremity ROM Impairments L knee in locked-hinged brace Strength Comments Strength Comments unable to perform SLR on LLE M6 PT-IP Treatment Start: 12/26/17 11:38 Freq: Status: Active Protocol: Document 12/27/17 13:40 CLB (Rec: 12/27/17 14:01 CLB [id number]) Physical Therapy Treatment Exercises Exercises Ankle Pumps Quad Sets Education Education Provided Precautions Weight Bearing Status Safety M7 PT-IP Assessment and Plan Start: 12/26/17 11:38 Freq: Status: Active Protocol: Document 12/27/17 13:40 CLB (Rec: 12/27/17 14:01 CLB [id number]) PT Summary Assessment and Plan Potential Rehabilitation Potential Good Summary Impairments Pain ROM Strength Balance Bed Mobility Transfers Gait Activity Tolerance Progress Towards Goals Slow Progress due to Medical Issues Assessment Summary Pt needing Mod A of LLE with sit-sup and Mod A to full stand from chair. Pt able to maintain WB status during transfer. Pt will benefit from SNF rehab to improve strength and functional independence. Goals Bed Mobility Goal Standby Assistance Transfer Goal Standby Assistance Front Wheeled Walker Gait Goal Standby Assistance Front Wheel Walker Gait Distance 25 Frequency of Treatment Frequency Of Treatment Twice a Day Treatment Plan Physical Therapy Treatment Plan Bed Mobility Training Transfer Training Gait Training Therapeutic Exercise Balance Retraining Post Op Education Discharge Planning Hot or Cold Pack Neuromuscular Re-ed Recommendations To Nursing Amount of Assist Needed 1 Person Assist Discharge Recommendations PT Discharge Recommendations SNF Rehab
--- NOTE | 2017-12-27 17:51 | PC.NURSE ---
Addendum entered by Kelli Bass R.N. 12/27/17 22:49: paged earlier about gram positive bacteria- stated we will assess in AM. Pt uses call light, advil helped pain. belongings and call light within reach. will continue to monitor. denies needs at this time. Original Note: Addendum entered by Kelli Bass R.N. 12/27/17 19:26: wound cultures came back positive fro gram positive cocci - pt placed on isolation, teaching completed to pt and . Original Note: Addendum entered by Kelli Bass R.N. 12/27/17 19:06: Pt checked on, no needs at this time, watching TV with henry. denies discomfort. will continue to monitor. Original Note: assumed care of pt form outgoing shift at 1500- 9-2. Pt laying in bed. at bedside. had snack before dinner and also ate dinner. pt blood sugar as charted. pt tolerated insulin injections. Pt belongings and call light within reach. bed alarm on. carpio patent and draining. will continue to monitor pt for safety.
[2017-12-27] MEDS: POTASSIUM CHLORIDE 10 MEQ TAB PO (21:14)
--- NOTE | 2017-12-28 00:24 | PC.NURSE ---
shift note met with pt at start of shift. AOX3. Rates pain 3/10, declines PRN pain medications at this time. Pt has been placed on contact precautions during the day. 97% on RA, LS clear. Left leg in immobilizer with 2 hemovacs and aamir dressing which is CDI with minimal scant old drainage. Denies N/V, Call light in reach. Bed alarm on
[2017-12-28 03:50] VITALS: BP 120/72; PULSE 70; RESP 16; TEMP 36.4; O2SAT 95
[2017-12-28] MEDS: HYDROCODONE/ACET 5/325 TABLET 1 TAB PO ×3 (05:10→14:22)
[2017-12-28 08:03] VITALS: BP 148/69; PULSE 66; RESP 18; TEMP 36.6; O2SAT 97
[2017-12-28] MEDS: ASPIRIN EC 81 MG TABLET PO (08:32)
[2017-12-28] MEDS: METFORMIN 850 MG TABLET PO (08:32)
[2017-12-28] MEDS: ATENOLOL 50 MG TABLET PO (08:32)
[2017-12-28] MEDS: DOCUSATE 100 MG CAPSULE PO (08:33)
[2017-12-28] MEDS: LOSARTAN 50 MG TABLET 100 MG PO (08:33)
[2017-12-28] MEDS: SODIUM CHLORIDE 0.9% FLUSH 10 ML IV (08:33)
[2017-12-28] MEDS: hydroCHLOROthiazide 25 MG TABLET 50 MG PO (08:33)
[2017-12-28] MEDS: INSULIN ASPART 100 UNIT/ML INSULN PEN SUBCUT ×2 (08:34→12:49)
[2017-12-28] MEDS: POTASSIUM CHLORIDE 10 MEQ TAB PO (08:34)
[2017-12-28] MEDS: MULTIVITAMIN 1 TABLET 1 TAB PO (08:34)
--- NOTE | 2017-12-28 09:14 | PC.NURSE ---
Addendum entered by Mouna Lanier R.N. 12/28/17 15:21: Transfer to SNF: PICC line left in place for IV abx at [facility]. Transfer packet given to ambulance staff, including all scripts. Medicated with pain meds prior to transport. All personal belongings sent with patient/spouse at time of discharge. Assisted onto gurney and taken out by ambulance staff. Report called to Leatha at [facility]. Original Note: Addendum entered by Mouna Lanier R.N. 12/28/17 11:56: Drains: Patient called to report that one of her drains had become disconnected after her transfer to [facility]. Dr Rivera was here, and when informed of this he gave order to d/c both drains. Medial and lateral hemovac both dc'd intact and with good hemostasis. Care taken not to interrupt seal of MOSES drain/dressing. Reports good pain relief with Ibuprofen and Vicodin, states no needs at this time. Call light in reach. Plan is to d/c to [facility] this afternoon, patient aware of the same. Original Note: Shift summary: Awake and alert, oriented X3. Denies pain in L knee as long as I'm not moving it. L knee in immobilizer brace. Circulation/sensation and pulses to BLE's WNL. MOSES dressing to L knee with scant old drainage. L knee medial and lateral hemovac drains compressed, scant sero-sang drainage. Ice packs in place. Discussed removal of carpio catheter- patient apprehensive r/t difficulty and severe knee pain during transfers. Will see how PT goes today. Able to make needs known and calls appropriately. Light in reach, bed alarm on.
[2017-12-28] MEDS: IBUPROFEN 600 MG TABLET PO ×2 (10:16→14:22)
[2017-12-28] MEDS: SODIUM CHLORIDE 0.9% 250 ML 21 ML IV (10:34)
--- NOTE | 2017-12-28 11:23 | PM.DS.1 ---
History of Present Illness Chief complaint: [id number] LEFT KNEE REVISION ARTHROPLASTY Discharge Providers Date of admission: 12/25/17 17:44 Primary care physician: Kelli Stovall MD Consults: 12/25/17 16:32 Consult to Discharge Planning Routine Comment: Consult to Physical Therapy Evaluate & Treat Comment: knee immobilizer please get a longer one that fits Physician Instructions: postop TKA protocol Consult to Respiratory Therapy Evaluate & Treat Comment: Physician Instructions: Evaluate and treat 12/26/17 12:12 Consult to Physical Therapy Evaluate & Treat Comment: locking hinged knee brace for L knee Physician Instructions: Evaluate and Treat Discharge provider: Fran Rivera MD Summary Discharge Diagnosis: Septic left total knee arthroplasty Hospital Course: Patient was admitted to the hospital and had a irrigation debridement and removal of implants for septic total knee. She was placed on daptomycin as recommended by Infectious Disease. Current cultures show gram-positive cocci consistent with the previous Staph epidermidis cultures. She is now discharged to residential facility for 6 weeks of IV antibiotics. Status at Discharge Functional status at discharge: uses cane/walker Overall status at discharge: patient is not back to baseline Time Spent with Patient Less than 30 minutes Exam Vital Signs (past 8 hours): - 12/28/17 03:50 12/28/17 08:03 Temperature 97.5 F L 97.9 F Pulse Rate 70 66 Respiratory Rate 16 18 Blood Pressure 120/72 148/69 H Pulse Oximetry 95 97 Oxygen Delivery Method Room Air Oxygen Flow Rate 0 Extrem Other: Dressing is clean and intact. There is expected swelling of the extremity. The extremity is neurovascularly intact. Objective Labs Result Diagrams: 12/25/17 23:15 Discharge Plan Discharge Plan Patient Disposition: SNF Transfer to: [facility] Transportation: Ambulance Labs: CBC, CMP weekly I certify the postop hospital residential care is medically necessary on a continuing basis for any conditions for which he/ she received care during this hospitalization.: Yes The receiving facility has agreed to accept transfer and provide medical treatment.: Yes Discharge Med Rec/Prescriptions Prescriptions: New aspirin 81 mg Tablet,Delayed Release (Dr/Ec) 81 mg PO BID Qty: 0 RF: 0 docusate sodium 100 mg Capsule 100 mg PO BID Qty: 0 RF: 0 ibuprofen 600 mg Tablet 600 mg PO Q6HR PRN (Reason: As Needed For Fever/Mild Pain) Qty: 0 RF: 0 oxycodone 5 mg Tablet 5 mg PO Q4H PRN (Reason: Pain, Moderate (4-6)) Qty: 15 RF: 0 hydroxyzine pamoate 25 mg Capsule 25 mg PO Q6HR PRN (Reason: Nausea) Qty: 0 RF: 0 daptomycin 500 mg recon soln 936 mg IV Q24H Qty: 42 RF: 0 oxycodone 5 mg tablet 5 mg PO Q4-6H PRN (Reason: pain) Qty: 60 RF: 0 Continue atenolol 50 MG tablet 50 mg PO QDAY Qty: 0 RF: 0 Metformin Hydrochloride (GLUCOPHAGE) 850 mg PO BIDCC Qty: 0 RF: 0 losartan 50 MG tablet 100 mg PO QDAY Qty: 0 RF: 0 hydrochlorothiazide 25 MG tablet 50 mg PO QDAY Qty: 0 RF: 0 multivitamin Tablet 1 tab PO DAILY RF: 0 potassium citrate 5 mEq (540 mg) Tablet Extended Release 2 tab PO TID RF: 0 doxycycline hyclate 100 mg Tablet 100 mg PO BID RF: 0 colchicine 0.6 mg Capsule 0.6 mg PO DAILY PRN (Reason: as needed for gout recurrence) RF: 0 Discontinued hydrocodone-acetaminophen [[place]] 5-325 mg Tablet 1 tab PO Q4-6H PRN (Reason: Pain) RF: 0 Follow up/Referrals: Alise Stokes MD [Physician] - (Follow up with Dr. Stokes in the office in 2 weeks' time) Cruzito Fish [Non-Staff] - (Follow up in 1 week's time) Discharge Health Status Precautions: [place] Provider Discharge Instructions Diet: Regular and Carb-consistent/Diabetic Food texture: Regular Cold/Heat Therapy: Apply ice 20 minutes at a time at least hourly while awake Skin/Wound/Dressing Care Report to your healthcare provider any signs of infection, such as:: chills, fever, night sweats, increased pain and unusual drainage Dressing: Keep dressing clean, dry, and intact. Special Rehabilitation Services Reason for rehabilitation: Post-operative therapy Rehab type: Physical therapy Restrictions to mobility: 25% weightbearing on surgical knee, must keep brace locked while ambulating but may remove in bed and do gentle ROM exercises Discharge Data Primary Care Provider: Kelli Stovall Attending Provider: Alise Stokes Admit Date/Time: 12/25/17 17:44
--- NOTE | 2017-12-28 11:26 | PT.IPTN ---
Current Diagnoses Other infective bursitis, left knee (12/25/17) Presence of left artificial knee joint (12/25/17) Surgery Performed Operation Date: 12/25/17 10:15 Actual Procedures p Total Knee Arthroplasty Removal of hardware/implants, reimplatation of antibiotic spacers(Left) - Alise Stokes MD Physical Therapy Treatment Note M2 PT-IP Current Condition Start: 12/26/17 11:38 Freq: Status: Active Protocol: Document 12/26/17 18:00 RCC (Rec: 12/26/17 18:05 RCC [id number]) Physical Therapy Current Condition Current Condition Evaluation Date 11/13/17 Treatment Diagnosis Revision L TKA, impaired mobility Onset Date 12/25/17 Precautions Brace Order for locking knee brace L knee (currently wearing a knee immobilizer). Weight Bearing Status Weight Bearing Status Partial Weight Bearing Allowed Weight Bearing Amount (enter % 25% WB on the LLE. Locked or #) (%) when ambulating, gention motion in seated position allowed as tolerated with brace unlocked. M3 PT-IP Subjective Start: 12/26/17 11:38 Freq: Status: Active Protocol: Document 12/28/17 10:50 CLB (Rec: 12/28/17 11:26 CLB [id number]) Subjective Physical Therapy Visit Type Type Treatment Note Visit Start Time 10:50 Visit Stop Time 11:15 Total Visit Minutes 25 Physical Therapy Visit Comments Patient Comments Pt willing to transfer to chair. Therapy Pain Assessment Pain When Pain Assessed During Mobility Pain Present Pain Present Pain Reported Location Left Knee Scale Used pain scale not stated Pain Management Techniques Re-positioning M4 PT-IP Mobility and Gait Start: 12/26/17 11:38 Freq: Status: Active Protocol: Document 12/28/17 10:50 CLB (Rec: 12/28/17 11:26 CLB [id number]) PT-Bed Mobility Assessment Supine to Sit Supine to Sit Minimal Assistance 1 Person Assistance Head of Bed Elevated Bedrails PT-Transfer Assessment Sit to and From Stand Sit to and from Stand Moderate Assistance 1 Person Assistance Use of Upper Extremities Equipment Transfer Assistive Device Gait Belt Front Wheeled Walker Transfers Transfer Destination Chair Transfer Technique Stand Pivot Transfer Ability Level of Assist Minimal Assistance Moderate Assistance 1 Person Assistance Use of Upper Extremities Comments Mobility Comments Pt able to keep WB status during transfer. M5 PT-IP Objective Assessments Start: 12/26/17 11:38 Freq: Status: Active Protocol: Document 12/26/17 10:00 RCC (Rec: 12/26/17 11:56 RCC [id number]) Orientation Orientation/Cognition Level of Alertness Alert Orientation Name Age Birthday Month Date Year Day of Week Place Situation Gross Range of Motion Lower Extremity ROM Impairments L knee in locked-hinged brace Strength Comments Strength Comments unable to perform SLR on LLE M6 PT-IP Treatment Start: 12/26/17 11:38 Freq: Status: Active Protocol: Document 12/28/17 10:50 CLB (Rec: 12/28/17 11:26 CLB [id number]) Physical Therapy Treatment Exercises Exercises Ankle Pumps Quad Sets Education Education Provided Precautions Weight Bearing Status Safety M7 PT-IP Assessment and Plan Start: 12/26/17 11:38 Freq: Status: Active Protocol: Document 12/28/17 10:50 CLB (Rec: 12/28/17 11:26 CLB [id number]) PT Summary Assessment and Plan Potential Rehabilitation Potential Good Summary Impairments Pain ROM Strength Balance Bed Mobility Transfers Gait Activity Tolerance Progress Towards Goals Slow Progress due to Medical Issues Assessment Summary Pt requires Mod A of LLE OOB. Pt also requires Mod A to full stand from sitting. Pt able to maintain WB status during Stand Pivot transfer to chair. Pt will benefit from SNF rehab to improve strength and functional independence. Goals Bed Mobility Goal Standby Assistance Transfer Goal Standby Assistance Front Wheeled Walker Gait Goal Standby Assistance Front Wheel Walker Gait Distance 25 Frequency of Treatment Frequency Of Treatment Twice a Day Treatment Plan Physical Therapy Treatment Plan Bed Mobility Training Transfer Training Gait Training Therapeutic Exercise Balance Retraining Post Op Education Discharge Planning Hot or Cold Pack Neuromuscular Re-ed Recommendations To Nursing Amount of Assist Needed 1 Person Assist Discharge Recommendations PT Discharge Recommendations SNF Rehab
--- NOTE | 2017-12-28 11:27 | P.DS_ITS ---
History of Present Illness Chief complaint: [id number] LEFT KNEE REVISION ARTHROPLASTY Discharge Providers Date of admission: 12/25/17 17:44 Primary care physician: Kelli Stovall MD Consults: 12/25/17 16:32 Consult to Discharge Planning Routine Comment: Consult to Physical Therapy Evaluate & Treat Comment: knee immobilizer please get a longer one that fits Physician Instructions: postop TKA protocol Consult to Respiratory Therapy Evaluate & Treat Comment: Physician Instructions: Evaluate and treat 12/26/17 12:12 Consult to Physical Therapy Evaluate & Treat Comment: locking hinged knee brace for L knee Physician Instructions: Evaluate and Treat Discharge provider: Fran Rivera MD Summary Discharge Diagnosis: Septic left total knee arthroplasty Hospital Course: Patient was admitted to the hospital and had a irrigation debridement and removal of implants for septic total knee. She was placed on daptomycin as recommended by Infectious Disease. Current cultures show gram- positive cocci consistent with the previous Staph epidermidis cultures. She is now discharged to custodial facility for 6 weeks of IV antibiotics. Status at Discharge Functional status at discharge: uses cane/walker Overall status at discharge: patient is not back to baseline Time Spent with Patient Less than 30 minutes Exam Vital Signs (past 8 hours): - 12/28/17 03:50 12/28/17 08:03 Temperature 97.5 F L 97.9 F Pulse Rate 70 66 Respiratory Rate 16 18 Blood Pressure 120/72 148/69 H Pulse Oximetry 95 97 Oxygen Delivery Method Room Air Oxygen Flow Rate 0 Extrem Other: Dressing is clean and intact. There is expected swelling of the extremity. The extremity is neurovascularly intact. Objective Labs Result Diagrams: 12/25/17 23:15 Discharge Plan Discharge Plan Patient Disposition: SNF Transfer to: [facility] Transportation: Ambulance Labs: CBC, CMP weekly I certify the postop hospital custodial care is medically necessary on a continuing basis for any conditions for which he/ she received care during this hospitalization.: Yes The receiving facility has agreed to accept transfer and provide medical treatment.: Yes Discharge Med Rec/Prescriptions Prescriptions: New aspirin 81 mg Tablet,Delayed Release (Dr/Ec) 81 mg PO BID Qty: 0 RF: 0 docusate sodium 100 mg Capsule 100 mg PO BID Qty: 0 RF: 0 ibuprofen 600 mg Tablet 600 mg PO Q6HR PRN (Reason: As Needed For Fever/Mild Pain) Qty: 0 RF: 0 oxycodone 5 mg Tablet 5 mg PO Q4H PRN (Reason: Pain, Moderate (4-6)) Qty: 15 RF: 0 hydroxyzine pamoate 25 mg Capsule 25 mg PO Q6HR PRN (Reason: Nausea) Qty: 0 RF: 0 daptomycin 500 mg recon soln 936 mg IV Q24H Qty: 42 RF: 0 oxycodone 5 mg tablet 5 mg PO Q4-6H PRN (Reason: pain) Qty: 60 RF: 0 Continue atenolol 50 MG tablet 50 mg PO QDAY Qty: 0 RF: 0 Metformin Hydrochloride (GLUCOPHAGE) 850 mg PO BIDCC Qty: 0 RF: 0 losartan 50 MG tablet 100 mg PO QDAY Qty: 0 RF: 0 hydrochlorothiazide 25 MG tablet 50 mg PO QDAY Qty: 0 RF: 0 multivitamin Tablet 1 tab PO DAILY RF: 0 potassium citrate 5 mEq (540 mg) Tablet Extended Release 2 tab PO TID RF: 0 doxycycline hyclate 100 mg Tablet 100 mg PO BID RF: 0 colchicine 0.6 mg Capsule 0.6 mg PO DAILY PRN (Reason: as needed for gout recurrence) RF: 0 Discontinued hydrocodone-acetaminophen [[place]] 5-325 mg Tablet 1 tab PO Q4-6H PRN (Reason: Pain) RF: 0 Follow up/Referrals: Alise Stokes MD [Physician] - (Follow up with Dr. Stokes in the office in 2 weeks' time) Cruzito Fish [Non-Staff] - (Follow up in 1 week's time) Discharge Health Status Precautions: [place] Provider Discharge Instructions Diet: Regular and Carb-consistent/Diabetic Food texture: Regular Cold/Heat Therapy: Apply ice 20 minutes at a time at least hourly while awake Skin/Wound/Dressing Care Report to your healthcare provider any signs of infection, such as:: chills, fever, night sweats, increased pain and unusual drainage Dressing: Keep dressing clean, dry, and intact. Special Rehabilitation Services Reason for rehabilitation: Post-operative therapy Rehab type: Physical therapy Restrictions to mobility: 25% weightbearing on surgical knee, must keep brace locked while ambulating but may remove in bed and do gentle ROM exercises Discharge Data Primary Care Provider: Kelli Stovall Attending Provider: Alise Stokes Admit Date/Time: 12/25/17 17:44
[2017-12-28 11:35] VITALS: BP 153/37; PULSE 64; RESP 18; TEMP 36.9; O2SAT 98
--- NOTE | 2017-12-28 12:43 | CM.DPC ---
DCP: continued: case received, EMR reviewed and d/c to snf order noted by Dr. Rivera. After assistance from SHELLI Freire, RN coordinator Coco and pharmacy input the orders were faxed to [facility]. Discussed case with [place] ALBERTO Davalos, on for holiday. She read hand off from [place] cammy/Jocelynn and confirmed approval for snf was in place. Met with pt and her , introduced self and role. Pt feels comfortable with the d/c today. Drains were taken out just before d/c. [facility] is to stay in. Pt with large brace L leg. IV antibiotic dose is completed for today. Next dose 1100 tomorrow. [facility] transport set up with quill picking machine operator planned for 1430. Will follow prn until pt leaves. PASRR: completed and to snf packet plus fax/snf
--- NOTE | 2017-12-28 15:58 | PT.IPTN ---
Current Diagnoses Other infective bursitis, left knee (12/25/17) Presence of left artificial knee joint (12/25/17) Surgery Performed Operation Date: 12/25/17 10:15 Actual Procedures p Total Knee Arthroplasty Removal of hardware/implants, reimplatation of antibiotic spacers(Left) - Alise Stokes MD Physical Therapy Treatment Note M2 PT-IP Current Condition Start: 12/26/17 11:38 Freq: Status: Discharge Protocol: Document 12/26/17 18:00 RCC (Rec: 12/26/17 18:05 RCC [id number]) Physical Therapy Current Condition Current Condition Evaluation Date 11/13/17 Treatment Diagnosis Revision L TKA, impaired mobility Onset Date 12/25/17 Precautions Brace Order for locking knee brace L knee (currently wearing a knee immobilizer). Weight Bearing Status Weight Bearing Status Partial Weight Bearing Allowed Weight Bearing Amount (enter % 25% WB on the LLE. Locked or #) (%) when ambulating, gention motion in seated position allowed as tolerated with brace unlocked. M3 PT-IP Subjective Start: 12/26/17 11:38 Freq: Status: Discharge Protocol: Document 12/28/17 14:05 CLB (Rec: 12/28/17 15:58 CLB [id number]) Subjective Physical Therapy Visit Type Type Treatment Note Visit Start Time 14:05 Visit Stop Time 14:20 Total Visit Minutes 15 Number of LOGISTICS SPECIALIST Visits 3 Physical Therapy Visit Comments Patient Comments Pt wanting to get back to bed. Therapy Pain Assessment Pain When Pain Assessed During Mobility Pain Present Pain Present Pain Reported Location Left Knee Intensity 4 Scale Used Numeric (1 - 10) Pain Management Techniques Re-positioning M4 PT-IP Mobility and Gait Start: 12/26/17 11:38 Freq: Status: Discharge Protocol: Document 12/28/17 14:05 CLB (Rec: 12/28/17 15:58 CLB [id number]) PT-Bed Mobility Assessment Sit to Supine Sit to Supine Moderate Assistance 1 Person Assistance Bedrails PT-Transfer Assessment Sit to and From Stand Sit to and from Stand Moderate Assistance 1 Person Assistance Use of Upper Extremities Equipment Transfer Assistive Device Gait Belt Front Wheeled Walker Transfers Transfer Destination Bed Transfer Technique Stand Pivot Transfer Ability Level of Assist Minimal Assistance 1 Person Assistance Use of Upper Extremities Comments Mobility Comments Pt able to keep WB status during transfer. M5 PT-IP Objective Assessments Start: 12/26/17 11:38 Freq: Status: Discharge Protocol: Document 12/26/17 10:00 RCC (Rec: 12/26/17 11:56 RCC [id number]) Orientation Orientation/Cognition Level of Alertness Alert Orientation Name Age Birthday Month Date Year Day of Week Place Situation Gross Range of Motion Lower Extremity ROM Impairments L knee in locked-hinged brace Strength Comments Strength Comments unable to perform SLR on LLE M6 PT-IP Treatment Start: 12/26/17 11:38 Freq: Status: Discharge Protocol: Document 12/28/17 10:50 CLB (Rec: 12/28/17 11:26 CLB [id number]) Physical Therapy Treatment Exercises Exercises Ankle Pumps Quad Sets Education Education Provided Precautions Weight Bearing Status Safety M7 PT-IP Assessment and Plan Start: 12/26/17 11:38 Freq: Status: Discharge Protocol: Document 12/28/17 14:05 CLB (Rec: 12/28/17 15:58 CLB [id number]) PT Summary Assessment and Plan Potential Rehabilitation Potential Good Summary Impairments Pain ROM Strength Balance Bed Mobility Transfers Gait Activity Tolerance Progress Towards Goals Slow Progress due to Medical Issues Assessment Summary Pt requires Min A to stand with heavy UE use on walker. Pt able to stand pivot on RLE from chair to bedside and requires Mod A of LLE into bed , pt can position self in bed using RLE with slight bridging . Goals Bed Mobility Goal Standby Assistance Transfer Goal Standby Assistance Front Wheeled Walker Gait Goal Standby Assistance Front Wheel Walker Gait Distance 25 Frequency of Treatment Frequency Of Treatment Twice a Day Treatment Plan Physical Therapy Treatment Plan Bed Mobility Training Transfer Training Gait Training Therapeutic Exercise Balance Retraining Post Op Education Discharge Planning Hot or Cold Pack Neuromuscular Re-ed Recommendations To Nursing Amount of Assist Needed 1 Person Assist Discharge Recommendations PT Discharge Recommendations SNF Rehab
== END 2017-12-28 15:23 | DRG 464 ==
PROVIDERS: Admitting Provider Orthopaedic Surgery; PCP Family Medicine; Visit Provider Orthopaedic Surgery
PROC: 0SPD0JZ Removal of Synthetic Substitute from Left Knee Joint, Open Approach (ICD-10-PCS; principal; 2017-12-25 10:15)
DX: T84.54XA Infection and inflammatory reaction due to internal left knee prosthesis, initial encounter (principal); Z68.42 Body mass index [BMI] 45.0-49.9, adult; I10 Essential (primary) hypertension; M79.7 Fibromyalgia; E11.9 Type 2 diabetes mellitus without complications; Z79.84 Long term (current) use of oral hypoglycemic drugs; E66.9 Obesity, unspecified; E03.9 Hypothyroidism, unspecified
CPT/HCPCS: 36415; 71045; 73560; 82962; 85025; 87070; 87075; 87077; 87205; 87801; 97110; 97162; 97530; C9290; J0131; J0878; J1170; J1642; J2250; J2704; J3010; J3370

== ENCOUNTER → 2018-03-03 08:54 | Outpatient (REF) | payer OTHER, SELFPAY ==
[2017-12-25 16:15] VITALS: BMI 45.7
[2018-03-03 09:26] LABS: Body Fluid Red Blood Cells 70964 /uL; Body Fluid Tot Nucleated Cells 2503 /uL
[2018-03-03 10:04] LABS: Body Fluid Appearance CLOUDY; Body Fluid Clotted? NO CLOTS PRESENT; Body Fluid Color RED; Eosinophils Body Fluid 0 %; Mononuclear WBC Body Fluid 45 %; Other Cells Body Fluid 0 %; Polynuclear WBC Body Fluid 54 %
== END ==
LOC: LAB 08:54
PROVIDERS: PCP Family Medicine; Visit Provider Orthopaedic Surgery
DX: M71.162 Other infective bursitis, left knee (principal)
CPT/HCPCS: 87070; 87075; 87205; 89051; 89060

== ENCOUNTER 2018-04-15 08:52 | Inpatient (IN) | payer OTHER, SELFPAY ==
[2017-12-25 16:15] VITALS: BMI 45.7
[2018-04-06 09:49] VITALS: BMI 40.6
[2018-04-15] VITALS (14 sets, daily range): BP systolic 100–142; BP diastolic 41–77; PULSE 63–79; RESP 8–20; TEMP 36–36.9; O2SAT 94–99; BMI 43.2
--- NOTE | 2018-04-15 06:00 | DI.RAD.S_ITS ---
PROCEDURE: XR KNEE LT 1TO2V INDICATIONS: revision left TKA TECHNIQUE: 2 view(s) of the knee acquired. COMPARISON: [facility], CR, XR KNEE LT 1TO2V, 12/25/2017, 15:30. FINDINGS: Bones: Patient is status post knee joint arthroplasty revision. Hardware components are in expected positions. Visualized bony structures are intact. Soft tissues: Overlying postoperative changes are noted. IMPRESSION: Expected postoperative appearance. Dictated by: Je Castillo M.D. on 04/15/2018 at 16:59 Approved by: Je Castillo M.D. on 04/15/2018 at 17:00
[2018-04-15] MEDS: LACTATED RINGERS 1,000 ML 42 ML IV ×2 (09:35→14:59)
--- NOTE | 2018-04-15 12:01 | PM.PREOP ---
Pre-operative Note Interval Note Pre-op Check: Yes History & Physical Reviewed by Physician and Yes Exam Performed Changes: No H&P completed within 30 days and has changed as indicated here:: brain scan does not show significant abnormality, no new fevers or chills, no new wound problems
--- NOTE | 2018-04-15 12:02 | PM.OP.1 ---
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 She has a history of lymphedema. She ultimately developed a deep Staph epi infection in her left leg and has had placement of an antibiotic spacer. Multiple aspirations of the knee have been no growth. She is now brought to the operating room for a revision knee arthroplasty. The risks, benefits and alternatives to surgery were discussed with the patient prior to proceeding. Risks discussed included, but were not limited to, failure to relieve pain, stiffness, infection, nerve damage, deep venous thrombosis, pulmonary embolism, stroke, coma, heart attack, permanent paralysis and , as well as the potential need for eventual revision of the prosthetic. Surgeon: Alise Stokes Armature Winder Repairer: Jose Manuel Chinchilla Anesthesia Type: General and Spinal Operative Notes Findings: no evidence of infection, some but not severe bone loss, good stability Closure Type: primary Specimen(s): other (multiple cultures) Implants & Drains: Stokes and Nephew legion size 5 femoral component, size 4 tibia, posterior augments on the femoral component with a 4 mm offset farm worker femoral stem 16 x 160, size 11 posterior stabilized to poly, 6 mm offset on the tibial component a tibial side with a size left legion revision tibial base plate and the 12 x 160 tibial stem, 32 by 9 mm patella Applied: catheter Estimated Blood Loss (mL): 300 Blood products transfused: none Tourniquet time (min): 130 Procedure in detail: The patient was seen in the pre-operative area, where the patient identified the right knee as the operative site and this was marked with my initials. The patient was taken to the operating room and placed on the operative table in the supine position. After satisfactory anesthesia, a full service supervisor out was performed. The right leg was encircled with a tourniquet about the proximal thigh, and the leg was prepared from the toes to the tourniquet with ChloroPrep in the usual fashion and draped through sterile drapes. The leg was elevated and exsanguinated with Eschmark bandage and the tourniquet inflated to [250] mmHg pressure. Antibiotics were initially held in order to obtain deep tissue cultures. The knee was approached through an approximately 22 cm incision centered over the patella and carried into the knee through a medial parapatellar arthrotomy. Soft tissue was carefully mobilized around the patella the patella was measured with a caliper. She had approximately 12 mm of remaining patella. Soft tissue was meticulously mobilized and scar tissue was cleaned from both gutters. Fluid was sent for stat Gram stain culture and sensitivity. The patella was meticulously mobilized. Soft tissue was then stripped medially in order to allow anterior subluxation of the tibia. The soft tissue was also mobilized around the proximal lateral tibia. An oscillating saw was used to saw through a portion of the tibial antibiotic spacer but also to saw off the spacer plug. The tibial spacer was removed. The canal piece of the spacer was then removed. Combination of a saw and an osteotome was used to carefully free the antibiotic spacer from the distal femur. It was removed without difficulty or significant bone loss. Next the bone was carefully examine it was meticulously irrigated with normal saline any residual pseudomembrane was carefully removed. I sent cultures from underneath the from the patella, tibia, and femur. The bone appeared slightly softened in some areas but there was no obvious evidence of infection. Attention was then directed to the tibia. Retractors were placed around the tibia. I reamed both the femur and the tibia in preparation for his stems. Plan to put a 160 stem in both the femur and the tibia. The tibial stem was a 12 and the femoral stem was a 14. An intramedullary khloe was placed in the tibia and we did a cleanup cut on the proximal tibia. A minimal amount of bone was resected but there was a reasonable peripheral rim which had adequate bone quality. Best fit over the tibia was with a 6 mm offset for a size 4 tibia. The tibia was prepped in a trial tibia was inserted. Attention was then directed to the femur. We did a minimal distal femoral cut of about 1 mm at 6? and in preparation for a 160 by 14 stem. The rotation was meticulously set and also the block was placed in order to avoid anterior femoral notching but to tighten the femoral gap. Plus four offset was used to posteriorly translate the component. The box block was pinned and posterior resections were made for a +5 augment posteriorly both on the medial and lateral posterior femoral condyle. The canal was prepped for the offset stem. Trial reduction showed good stability patient came to full extension was stable at 0 45 and 90?. It was well balanced and had acceptable alignment. [place] like it could probably go up to +11 poly. Attention was then redirected to the patella. It measured 12 mm we used a combination of curettes as well as a saw to slightly freshened the patella. 32 mm patella was clamped to the residual bone and drill holes were made. Range of motion showed acceptable tracking of the patella. The bone was meticulously irrigated with normal saline. The components were assembled on the back table. Cement was mixed and the tibial component was cemented into place with antibiotic cement without difficulty. Sec batch was also mixed for the femur and patellar component which were also cemented into place without difficulty. Final check on the polyethylene showed that an 11 appeared appropriate she had full range of motion and good stability. Final poly was placed after clearing free cement. Tourniquet was deflated there was minimal bleeding. Additional Marcaine and Exparel were injected. The wound was closed a combination of interrupted Vicryl interrupted nonabsorbable stitches and running barbed stitches. Skin palma were used and the patient was placed in a aamir dressing. Complications: none Condition: stable Disposition: Acute Care Plan for aftercare: The patient will be maintained on a standard total knee replacement protocol with weight bearing as tolerated. The patient will receive aspirin and sequential compression devices for DVT prophylaxis. The patient will be discharged home when safe for the home environment.
[2018-04-15] MEDS: TRANEXAMIC ACID 1,000 MG VIAL 2000 MG INJ ×2 (12:20→14:47)
[2018-04-15] MEDS: VANCOMYCIN 1,000 MG/200 ML FROZ.PIGGY 200 MG IV ×2 (12:57→18:27)
[2018-04-15] MEDS: SODIUM CHLORIDE 0.9% IV (13:39)
[2018-04-15] MEDS: DAPTOMYCIN IV (13:39)
[2018-04-15] MEDS: BUPIVACAINE 0.25% W/ EPI VIAL 60 ML INJ (13:48)
[2018-04-15] MEDS: BUPIVACAINE LIPOSOME 266 MG/20 ML VIAL INJ (13:49)
[2018-04-15] MEDS: POVIDONE-IODINE 15 ML, SODIUM CHLORIDE 0.9% 250 ML TOP (14:15)
[2018-04-15] MEDS: ACETAMINOPHEN IV 1,000 MG/100 ML VIAL 400 MG IV (14:15)
[2018-04-15 14:49] LABS: Body Fluid Appearance CLOUDY; Body Fluid Clotted? NO CLOTS PRESENT; Body Fluid Color RED; Body Fluid Red Blood Cells 319935 /uL; Body Fluid Tot Nucleated Cells 2745 /uL; Eosinophils Body Fluid 0 %; Mononuclear WBC Body Fluid 71 %; Other Cells Body Fluid 0 %; Polynuclear WBC Body Fluid 29 %
[2018-04-15] MEDS: LACTATED RINGERS 1,000 ML 125 ML IV (18:27)
[2018-04-15] MEDS: HYDROMORPHONE 2 MG TABLET PO (18:50)
[2018-04-15] MEDS: hydrOXYzine pamoate 25 MG CAPSULE PO (18:51)
[2018-04-15] MEDS: OXYBUTYNIN 5 MG TABLET PO (20:58)
[2018-04-15] MEDS: ACETAMINOPHEN 325 MG TABLET 975 MG PO (20:58)
[2018-04-15] MEDS: OXYCODONE IR 5 MG TABLET PO (20:58)
[2018-04-15] MEDS: ASPIRIN EC 81 MG TABLET PO (20:58)
[2018-04-15] MEDS: METFORMIN 850 MG TABLET PO (20:58)
[2018-04-15] MEDS: DOCUSATE 100 MG CAPSULE PO (20:58)
[2018-04-16] VITALS (7 sets, daily range): BP systolic 91–142; BP diastolic 44–70; PULSE 74–96; RESP 16–18; TEMP 36.6–37.2; O2SAT 93–98
[2018-04-16] MEDS: hydrOXYzine pamoate 25 MG CAPSULE PO ×2 (00:56→13:58)
[2018-04-16] MEDS: OXYCODONE IR 5 MG TABLET PO ×4 (02:19→13:57)
[2018-04-16] MEDS: HYDROMORPHONE PCA 6 MG/30 ML PCA.VIAL IV (02:21)
[2018-04-16] MEDS: LACTATED RINGERS 1,000 ML 125 ML IV (03:18)
[2018-04-16 06:48] LABS: Hematocrit 34.3 % (36-46); Hemoglobin 10.8 g/dL (12.0-16.0)
--- NOTE | 2018-04-16 06:50 | PC.NURSE ---
reinforced pt's MOSES dressing since indication light for low suction was blinking orange. green light started to blink, but around 0500 orange light started to blink again. HV had 30cc out. pain controlled with 5mg oxycodone. pt c/o burning sensation to her IV site every time she pushed her DOUBLE END SEWER. DOUBLE END SEWER dc'd.
--- NOTE | 2018-04-16 07:18 | PM.PNPO.1 ---
Subjective Date Patient Seen: 04/16/18 Interval history: Patient seen bedside s/p R. knee revision with Dr. Stokes on 04/15/18. Patient is POD #1. She is doing well, had some difficulties with pain control overnight but is now resting comfortably. Patient would like to be discharged home when ready. Denies CP, SOB, calf pain. Exam Vital Signs (past 8 hours): - 04/16/18 01:36 04/16/18 04:25 Temperature 97.9 F 97.9 F Pulse Rate 83 89 Respiratory Rate 18 16 Blood Pressure 127/66 121/58 L Pulse Oximetry 97 96 Oxygen Delivery Method Room Air Oxygen Flow Rate 0 Narrative Exam Narrative: WDWN NAD A&Ox3. Dressing on left knee is CDI, no signs of drainage, minimal erythema/edema. Minmal drainage in hemovac. Calf is soft and compressible. NVI in this extremity. Objective Labs Result Diagrams: 04/16/18 06:28 Labs: Laboratory Results - last 24 hr 04/15/18 04/16/18 12:30 06:28 Hgb 10.8 L Hct 34.3 L Fluid Color Red Fluid Appearance Cloudy Fluid RBC 110358 Fld Tot Nucleated Cell 2745 Fluid Polynuclear WBCs 29 Fluid Mononuclear WBCs 71 Fluid Eosinophils 0 Fluid Other Cells 0 Body Fluid Clot No clots present Assessment & Plan Post-op Postoperative Procedures Operation Date: 04/15/18 10:45 Actual Procedures Side Surgeon p Total Knee Arthroplasty Revision Left Alise A MD Kike 1. POD #1 s/p above procedure--up with PT, DVT prophylaxis ASA, pain control. Discontinue hemovac drain. Dispo-pending on pain management and patient mobility. Patient would like to go home so will work to achieve this goal. Quality VTE Deep Vein Thrombosis/Pulmonary Embolism Present on Admission: No
--- NOTE | 2018-04-16 07:21 | P.PN_ITS ---
Subjective Date Patient Seen: 04/16/18 Interval history: Patient seen bedside s/p R. knee revision with Dr. Stokes on . Patient is POD #1. She is doing well, had some difficulties with pain control overnight but is now resting comfortably. Patient would like to be discharged home when ready. Denies CP, SOB, calf pain. Exam Vital Signs (past 8 hours): - 04/16/18 01:36 04/16/18 04:25 Temperature 97.9 F 97.9 F Pulse Rate 83 89 Respiratory Rate 18 16 Blood Pressure 127/66 121/58 L Pulse Oximetry 97 96 Oxygen Delivery Method Room Air Oxygen Flow Rate 0 Narrative Exam Narrative: WDWN NAD A&Ox3. Dressing on left knee is CDI, no signs of drainage, minimal erythema/edema. Minmal drainage in hemovac. Calf is soft and compressible. NVI in this extremity. Objective Labs Result Diagrams: 04/16/18 06:28 Labs: Laboratory Results - last 24 hr 04/15/18 04/16/18 12:30 06:28 Hgb 10.8 L Hct 34.3 L Fluid Color Red Fluid Appearance Cloudy Fluid RBC 906112 Fld Tot Nucleated Cell 2745 Fluid Polynuclear WBCs 29 Fluid Mononuclear WBCs 71 Fluid Eosinophils 0 Fluid Other Cells 0 Body Fluid Clot No clots present Assessment & Plan Post-op Postoperative Procedures Operation Date: 04/15/18 10:45 Actual Procedures Side Surgeon p Total Knee Arthroplasty Revision Left Alise A MD Kike 1. POD #1 s/p above procedure--up with PT, DVT prophylaxis ASA, pain control. Discontinue hemovac drain. Dispo-pending on pain management and patient mobility. Patient would like to go home so will work to achieve this goal. Quality VTE Deep Vein Thrombosis/Pulmonary Embolism Present on Admission: No
[2018-04-16] MEDS: SODIUM CHLORIDE 0.9% FLUSH 10 ML IV (09:34)
[2018-04-16] MEDS: ASPIRIN EC 81 MG TABLET PO ×2 (09:35→20:40)
[2018-04-16] MEDS: ATENOLOL 50 MG TABLET PO (09:35)
[2018-04-16] MEDS: DOCUSATE 100 MG CAPSULE PO ×2 (09:35→20:40)
[2018-04-16] MEDS: ACETAMINOPHEN 325 MG TABLET 975 MG PO ×3 (09:35→20:40)
[2018-04-16] MEDS: hydroCHLOROthiazide 25 MG TABLET PO (09:35)
--- NOTE | 2018-04-16 09:35 | PT.IIE ---
Current Diagnoses Other infective bursitis, left knee (04/15/18) Presence of left artificial knee joint (04/15/18) Presence of unspecified artificial knee joint (04/15/18) Surgery Performed Operation Date: 04/15/18 10:45 Actual Procedures p Total Knee Arthroplasty Revision(Left) - Alise Stokes MD Surgical History (Last Updated 04/06/18 @ 09:57 by Lainey Goode RN) H/O arthrodesis (Acute) H/O: (Acute) History of incision and drainage (Acute ~10/2017) History of total knee arthroplasty (Acute 03/30/13) S/P bunionectomy (Acute) S/P foot surgery, left (Acute) Medical History (Last Updated 04/06/18 @ 10:31 by Lainey Goode RN) Arthritis (Acute) Cellulitis of knee, left (Acute) Diabetes (Acute) Failure of total knee replacement (Acute ~11/2017) Fibromyalgia (Acute) Heartburn (Acute) Hypertension (Acute) Local infection of skin and subcutaneous tissue (Acute) Malaise (Acute) Other infective bursitis, left knee (Acute) PIC line (peripherally inserted central catheter) removal (Acute) Thyroid disease (Acute) Physical Therapy Inpatient Evaluation/Re-Eval M1 PT/OT-IP Prior Functional Status Start: 04/16/18 10:01 Freq: NEEDED Status: Active Protocol: Document 04/16/18 10:02 AB (Rec: 04/16/18 10:05 AB [id number]) Medical Review Prior Functional Status Medical History Reviewed Yes Communication able to make needs known Mobility and Gait stated that she is modified independent with all mobilities and ambulation using FWW Social History Household Members spouse children Living Arrangements Mobile home Number of Floors (Floors) One Floor Number of Stairs To Enter/Railing? Ramp to enter Home Environment High Toilet Walk in Shower Ramp Home Equipment Front Wheel Walker Manual Wheelchair Bedside Commode Shower Seat with Backrest Hand Held Shower M2 PT-IP Current Condition Start: 04/16/18 10:01 Freq: NEEDED Status: Active Protocol: Document 04/16/18 10:02 AB (Rec: 04/16/18 10:05 AB [id number]) Physical Therapy Current Condition Current Condition Evaluation Date 04/16/18 Treatment Diagnosis s/p L TKA revision; difficulty in walking Onset Date 04/15/18 Weight Bearing Status Weight Bearing Status Weight Bear as Tolerated M3 PT-IP Subjective Start: 04/16/18 10:01 Freq: NEEDED Status: Active Protocol: Document 04/16/18 09:35 AB (Rec: 04/16/18 12:24 AB [id number]) Subjective Physical Therapy Visit Type Type Initial Evaluation Visit Start Time 09:35 Visit Stop Time 11:16 Total Visit Minutes 39 Notes pt seen for split visits Number of LEGAL RESEARCHER Visits 0 Physical Therapy Visit Comments Patient Goals to go home Therapy Pain Assessment Pain When Pain Assessed During Mobility Pain Present Pain Present Pain Reported Location Left Knee Intensity 6 Scale Used Numeric (1 - 10) Pain Management Techniques Re-positioning Timing of Activity with Medications M4 PT-IP Mobility and Gait Start: 04/16/18 10:01 Freq: NEEDED Status: Active Protocol: Document 04/16/18 09:35 AB (Rec: 04/16/18 12:24 AB [id number]) PT-Bed Mobility Assessment Supine to Sit Supine to Sit Standby Assistance Bedrails PT-Transfer Assessment Sit to and From Stand Sit to and from Stand Minimal Assistance 1 Person Assistance Use of Upper Extremities Equipment Transfer Assistive Device Gait Belt Front Wheeled Walker Orthotic/Prosthetic Devices or Brace: No Transfers Transfer Destination Chair Transfer Technique Stand Step Pivot Transfer Ability Level of Assist Minimal Assistance Comments Mobility Comments pt used leg electronic development technician to assist LLE mobility in bed. Gait Assessment Gait Gait Assistance Required: Minimum Assistance Distance (Feet) 5 Able to Maintain Weight Bearing Status Yes During Gait Assistive Devices Assistive Device Gait Belt Front Wheeled Walker Orthotic/Prosthetic Devices or Brace: No Gait Deviations General Gait Pattern Antalgic Decreased Stride Length Decreased Feet Clearance Step-to Gait Factors Limiting Gait Function Factors Limiting Gait Function Decreased Activity Tolerance Decreased Strength Limited Range of Motion Pain Poor Balance Poor Safety Awareness Comments Gait Comments pt unable to tolerate much ambulation but completed ~ 5 ft using FWW min A. presents with antalgic shuffling gait with decrease weight bearing on LLE. PT-Balance Assessment Sitting Balance and Reactions Static Sitting Balance Ability Good Dynamic Sitting Balance Ability Good Standing Balance and Reactions Static Standing Balance Ability Fair Dynamic Standing Balance Ability Fair Device Used FWW M5 PT-IP Objective Assessments Start: 04/16/18 10:01 Freq: NEEDED Status: Active Protocol: Document 04/16/18 09:35 AB (Rec: 04/16/18 12:24 AB [id number]) Orientation Orientation/Cognition Level of Alertness Alert Orientation Name Age Birthday Month Date Year Day of Week Place Situation Safety Awareness Understands Safety Issues Gross Range of Motion Lower Extremity ROM Assessment Left Impaired Impairments L knee flexion: 20 degrees Strength Lower Extremity Strength Assessment Left Impaired Hip 3-/5 Knee 3-/5 Ankle 4+/5 Sensation Assessment Sensation Gross Sensation WNL M6 PT-IP Treatment Start: 04/16/18 10:01 Freq: NEEDED Status: Active Protocol: Document 04/16/18 09:35 AB (Rec: 04/16/18 12:24 AB [id number]) Physical Therapy Treatment Exercises Exercises Heel Slides Knee ROM Measurement 20 degrees flexion Education Education Provided Precautions Weight Bearing Status Safety Other Treatments Other Treatment Performed pt stated that she still has the previous pot-op packet given to her during her last hospital stay for L TKA revision M7 PT-IP Assessment and Plan Start: 04/16/18 10:01 Freq: NEEDED Status: Active Protocol: Document 04/16/18 10:02 AB (Rec: 04/16/18 10:05 [id number]) PT Summary Assessment and Plan Frequency of Treatment Frequency Of Treatment Twice a Day
[2018-04-16] MEDS: METFORMIN 850 MG TABLET PO ×2 (09:36→20:41)
[2018-04-16] MEDS: OXYBUTYNIN 5 MG TABLET PO ×2 (09:36→20:39)
[2018-04-16] MEDS: LOSARTAN 50 MG TABLET 100 MG PO (09:36)
[2018-04-16] MEDS: POTASSIUM CHLORIDE 20 MEQ TAB PO (09:36)
--- NOTE | 2018-04-16 11:56 | PC.NURSE ---
AM Shift pt AOx4, pleasant, and receptive to care. Reporting 6/10 pain. Administered 5mg Oxycodone and 975 Tylenol at 0930. Reassessed pain at 4/10. Patient is only making it through 3 hours before asking for/ no longer tolerating pain; I am (pt requesting) hoping to catch the ortho PA to request an increase to 10mg. PT assist pt in room, only able to take a couple steps to chair. Tolerating moderately. Sitting up in chair for lunch. PT evaluated her to be a 1PA with FWW. Olson draining to gravity, hemovac compressed, MOSES on.
--- NOTE | 2018-04-16 16:38 | CM.IDA ---
Discharge Planning/Care Management CM Discharge Assessment Start: 04/16/18 16:31 Freq: Status: Active Protocol: Document 04/16/18 16:31 STEFFANIE (Rec: 04/16/18 16:38 STEFFANIE [id number]) Discharge Planning Assessment Assigned General Foundry Worker CALLY Delgado DPOA/Assigned Designee Name Juanito Jean, spouse Contact Information [phone] Advance Directives? Yes: Part of will, unable to bring copy Advance Directives on File No History Provided By Patient Medical Record Prior Living Arrangements Mobile home Household Members spouse children Type of transporation used prior to Relies on Others admit Independent with ADL's Yes Is patient alert and oriented? Yes Comment Needs assist w/higher ADLs, h/ o multiple surgeries. [facility] in February for IV abx and skilled PT/OT. Comment Met w/pt, explained SW role. Pt a little drowsy this morning but A+O x3. She explains she has had multiple surgeries in the past and feels her home is prepared for her DC home w/spouse to assist. She was at [facility] in February for ongoing IV abx and once home had [facility] following up, she really liked them and requests [facility] her DC from . Faxed completed referral packet to [facility] per pt's request to include F2F and HH order. Pt will likely be here until Thursday or Thursday, home w/ family and [facility]. Discharge Plan Home with Home Health Transportation Arrangement Family Referrals Initiated Home Health Additional Comment SNF if pt does not make significant improvement w/ therapy team. Pt has [facility]. Pt does not want to return to [facility] and [facility] has not been accepting any new referrals SNF/HH Preference erin Has Agency SNF been contacted Yes Whiteboard Updated in Patient Room with Yes name and ext. # of General Foundry Worker Review Status In Process
--- NOTE | 2018-04-16 17:15 | PC.NURSE ---
Addendum entered by Aida Greer R.N. 04/16/18 22:01: Pt mostly sleeping following evening meal. States pain 0/10 following 10 mg oxycodone. Post tib pulses BL located with doppler and marked. Pitting edema to feet/ankles BL. Unable to flush iv without discomfort so dc'd intact. Refuses scd's. Encouraged to call for needs. Bed alarm set as pt reports h/o fall prior to admission. MOSES drain continues to function without difficulty. Hemovac intact and carpio to gravity with brisk urinary output. Excellent po intake. Original Note: Pt awake, alert, conversant and up in recliner @ beginning of shift. States has h/o chronic pain and considers 4/10 acceptable pain level. States this is currently pain level. Denies nausea. P.T. in to see patient and transfer pt to bed. Pt reports, did better this afternoon. MOSES drain battery pack in pt's pocket and green light blinking indicating device is functional. Left knee dressing covered with chirstine wrap is dry and intact. Hemovac compressed. Unable to palpate pedal pulses BL, however, pt denies numbness to extremities and BL LE's are equally warm to touch and pink in color.
[2018-04-16] MEDS: OXYCODONE IR 10 MG TABLET PO (19:32)
[2018-04-17] VITALS (7 sets, daily range): BP systolic 102–125; BP diastolic 50–84; PULSE 68–97; RESP 15–19; TEMP 36.7–37.7; O2SAT 92–98
[2018-04-17] MEDS: OXYCODONE IR 10 MG TABLET PO ×3 (00:13→06:11)
--- NOTE | 2018-04-17 06:14 | PC.NURSE ---
balaji and ALEYDA peraza'd at [phone]
--- NOTE | 2018-04-17 07:44 | PM.PNPO.1 ---
Subjective Date Patient Seen: 04/17/18 Time Patient Seen: 07:44 Interval history: Patient seen bedside s/p L. TKA revision POD #2. Patient's pain is controlled, her MOSES dressing is not working at this time. She would like to go home, but her blood pressure has been running on the low side. She is also having some lightheadedness when she stands up. Denies CP, SOB, calf pain. Exam Vital Signs (past 8 hours): - 04/17/18 05:50 Temperature 98.7 F Pulse Rate 68 Respiratory Rate 16 Blood Pressure 107/64 Pulse Oximetry 98 Oxygen Delivery Method Room Air Oxygen Flow Rate 0 Narrative Exam Narrative: WDWN NAD A&Ox3. Dressing is CDI, but MOSES is not registering a good seal. This was removed. Incision is clean, dry, and intact with minimal erythema/edema and no visible drainage. It is closed with surgical palma. An Aquacel dressing was placed over the incision. She is NVI in this extremity and her calf is soft and compressible. Negative Prudencio's sign. Objective Labs Result Diagrams: 04/16/18 06:28 Assessment & Plan Post-op Postoperative Procedures Operation Date: 04/15/18 10:45 Actual Procedures Side Surgeon p Total Knee Arthroplasty Revision Left Alise Stokes MD 1. POD #2 s/p above procedure--continue with PT/OT, hold HTN medications this morning. Increase oral intake. Check CBC. Dispo-probable d/c home tomorrow. Quality VTE Deep Vein Thrombosis/Pulmonary Embolism Present on Admission: No
--- NOTE | 2018-04-17 09:34 | PT.IPTN ---
Current Diagnoses Other infective bursitis, left knee (04/15/18) Presence of left artificial knee joint (04/15/18) Presence of unspecified artificial knee joint (04/15/18) Surgery Performed Operation Date: 04/15/18 10:45 Actual Procedures p Total Knee Arthroplasty Revision(Left) - Alise Stokes MD Physical Therapy Treatment Note M2 PT-IP Current Condition Start: 04/16/18 10:01 Freq: NEEDED Status: Active Protocol: Document 04/16/18 10:02 AB (Rec: 04/16/18 10:05 AB [id number]) Physical Therapy Current Condition Current Condition Evaluation Date 04/16/18 Treatment Diagnosis s/p L TKA revision; difficulty in walking Onset Date 04/15/18 Weight Bearing Status Weight Bearing Status Weight Bear as Tolerated M3 PT-IP Subjective Start: 04/16/18 10:01 Freq: NEEDED Status: Active Protocol: Document 04/17/18 09:34 AB (Rec: 04/17/18 12:50 AB [id number]) Subjective Physical Therapy Visit Type Type Treatment Note Visit Start Time 09:34 Visit Stop Time 11:16 Total Visit Minutes 17 Notes pt seen for split visits Number of SVP RESEARCH & EBUSINESS OPERATIONS Visits 0 Physical Therapy Visit Comments Patient Comments i am not feeling well; i am dizzy; stated that she has BP issues Therapy Pain Assessment Pain Present Pain Present Denied Pain M4 PT-IP Mobility and Gait Start: 04/16/18 10:01 Freq: NEEDED Status: Active Protocol: Document 04/17/18 09:34 AB (Rec: 04/17/18 12:50 AB [id number]) PT-Transfer Assessment Sit to and From Stand Sit to and from Stand Standby Assistance Equipment Transfer Assistive Device Gait Belt Front Wheeled Walker Orthotic/Prosthetic Devices or Brace: No Comments Mobility Comments BP monitored. pt stated that she does not feel it is safe for her to ambulate due to her BP and that she is not feeling well. BP sitting on chair: 92/56 pt completed sit to stand SBA and was able to maintain standing using FWW for support SBA. pt tolerated ~ 2 min of standing. BP in standin/62. pt requested to sit back down due to c/o feeling tired. BP checked again in sittin/ 63. pt refused further PT. positioned pt on chair. call light and table placed within reach. M5 PT-IP Objective Assessments Start: 04/16/18 10:01 Freq: NEEDED Status: Active Protocol: Document 04/16/18 09:35 AB (Rec: 04/16/18 12:24 AB [id number]) Orientation Orientation/Cognition Level of Alertness Alert Orientation Name Age Birthday Month Date Year Day of Week Place Situation Safety Awareness Understands Safety Issues Gross Range of Motion Lower Extremity ROM Assessment Left Impaired Impairments L knee flexion: 20 degrees Strength Lower Extremity Strength Assessment Left Impaired Hip 3-/5 Knee 3-/5 Ankle 4+/5 Sensation Assessment Sensation Gross Sensation WNL M6 PT-IP Treatment Start: 04/16/18 10:01 Freq: NEEDED Status: Active Protocol: Document 04/16/18 16:10 LJ (Rec: 04/17/18 12:40 LJ [email or web address]) Physical Therapy Treatment Exercises Exercises Ankle Pumps Gluteal Sets Short Arc Quads Education Education Provided Precautions Weight Bearing Status Safety Other Treatments Other Treatment Performed ice and warm blanket provided M7 PT-IP Assessment and Plan Start: 04/16/18 10:01 Freq: NEEDED Status: Active Protocol: Document 04/17/18 09:34 AB (Rec: 04/17/18 12:50 AB [id number]) PT Summary Assessment and Plan Potential Rehabilitation Potential Fair Summary Impairments Pain ROM Strength Balance Coordination Sensation Tone Cognition Bed Mobility Transfers Gait Activity Tolerance Progress Towards Goals Slow Progress due to Medical Issues Slow Progress due to Activity Tolerance Assessment Summary pt requiring one person assist with sit to stand. unable to tolerate activity this morning. will continue to assess for d/c plan but pt will likely progress and go home with spouse to assist. Goals Bed Mobility Goal Standby Assistance Transfer Goal Standby Assistance Front Wheeled Walker Gait Goal Standby Assistance Front Wheel Walker Gait Distance 100 Days to Meet Goals 5 Frequency of Treatment Frequency Of Treatment Twice a Day Treatment Plan Physical Therapy Treatment Plan Bed Mobility Training Transfer Training Gait Training Therapeutic Exercise Balance Retraining Post Op Education Discharge Planning Hot or Cold Pack Neuromuscular Re-ed Coordination Retraining Manual Therapy Recommendations To Nursing Amount of Assist Needed 1 Person Assist Discharge Recommendations PT Discharge Recommendations Home with Assistance Home Health
[2018-04-17] MEDS: OXYBUTYNIN 5 MG TABLET PO (09:44)
[2018-04-17] MEDS: ACETAMINOPHEN 325 MG TABLET 975 MG PO ×2 (09:44→20:12)
[2018-04-17] MEDS: hydroCHLOROthiazide 25 MG TABLET PO (09:45)
[2018-04-17] MEDS: ASPIRIN EC 81 MG TABLET PO ×2 (09:45→20:33)
[2018-04-17] MEDS: METFORMIN 850 MG TABLET PO ×2 (09:45→20:33)
[2018-04-17] MEDS: POTASSIUM CHLORIDE 20 MEQ TAB PO (09:45)
[2018-04-17] MEDS: DOCUSATE 100 MG CAPSULE PO ×2 (09:48→20:15)
--- NOTE | 2018-04-17 10:05 | PC.NURSE ---
Addendum entered by Sujit Ohara R.N. 04/17/18 14:36: Up with PT doing much better, actually out in triplett with PT this afternoon. Continues taking fluid as requested, B/P improving. No dizziness when up this time. Original Note: Addendum entered by Sujit Ohara R.N. 04/17/18 10:08: HOMER Campuzano changed Debby dressing to aquacell on rounds. Whitney and ALEYDA were d/c'd on noc shift. Original Note: Pt up in chair presently, felt somewhat dizzy, Settling in to chair. Dr. Stokes and PA into see Pt see new orders. Losaarten and atenolol held per orders. Will encourage po intake to maintain fluid status.
[2018-04-17 10:36] LABS: Add Manual Diff / Slide Review NO; Basophils Percent Auto 0.3 % (0-2); Eosinophils Percent Auto 4.1 % (2-4); Hematocrit 33.5 % (36-46); Hemoglobin 10.7 g/dL (12.0-16.0); Lymphocytes Percent Auto 7.1 % (25-40); Mean Corpuscular HGB Conc 31.8 % (30-36); Mean Corpuscular Hemoglobin 22.2 PG (26-34); Mean Corpuscular Volume 69.9 fL (80-100); Monocytes Percent Auto 8.5 % (3-14); Neutrophils Absolute Auto 6100 /uL (1500-7000); Platelet Count 164 X10^3/uL (150-400); Red Cell Distribution Width 17.1 % (11.6-14.8); White Blood Cell Count 7.6 X10^3/uL (4.5-11.0)
[2018-04-17 11:11] LABS: Microcytosis 1+
--- NOTE | 2018-04-17 12:40 | PT.IPTN ---
Current Diagnoses Other infective bursitis, left knee (04/15/18) Presence of left artificial knee joint (04/15/18) Presence of unspecified artificial knee joint (04/15/18) Surgery Performed Operation Date: 04/15/18 10:45 Actual Procedures p Total Knee Arthroplasty Revision(Left) - Alise Stokes MD Physical Therapy Treatment Note M2 PT-IP Current Condition Start: 04/16/18 10:01 Freq: NEEDED Status: Active Protocol: Document 04/16/18 10:02 AB (Rec: 04/16/18 10:05 AB [id number]) Physical Therapy Current Condition Current Condition Evaluation Date 04/16/18 Treatment Diagnosis s/p L TKA revision; difficulty in walking Onset Date 04/15/18 Weight Bearing Status Weight Bearing Status Weight Bear as Tolerated M3 PT-IP Subjective Start: 04/16/18 10:01 Freq: NEEDED Status: Active Protocol: Document 04/16/18 16:10 LJ (Rec: 04/17/18 12:40 LJ [email or web address]) Subjective Physical Therapy Visit Type Type Treatment Note Visit Start Time 16:10 Visit Stop Time 16:37 Total Visit Minutes 17 Notes Pt in chair willing to ambulate in room. States her blood pressure has been low lately and needs to take it easy. Therapy Pain Assessment Pain When Pain Assessed At Rest Pain Present Pain Present Pain Reported M4 PT-IP Mobility and Gait Start: 04/16/18 10:01 Freq: NEEDED Status: Active Protocol: Document 04/16/18 16:10 LJ (Rec: 04/17/18 12:40 LJ [email or web address]) PT-Bed Mobility Assessment Sit to Supine Sit to Supine Minimal Assistance PT-Transfer Assessment Sit to and From Stand Sit to and from Stand Minimal Assistance 1 Person Assistance Use of Upper Extremities Equipment Transfer Assistive Device Gait Belt Front Wheeled Walker Transfers Transfer Destination Bed Transfer Technique Stand Step Pivot Transfer Ability Level of Assist Minimal Assistance Comments Mobility Comments Pt able to stand from chair w/ CGA. Slow in standing upright. Required cues for using UEs more. Required min assist for LLE back into bed. Able to position self in bed with verbal cues. Gait Assessment Gait Gait Assistance Required: Contact Guard Assist Distance (Feet) 20 Able to Maintain Weight Bearing Status Yes During Gait Assistive Devices Assistive Device Gait Belt Front Wheeled Walker Gait Deviations General Gait Pattern Antalgic Decreased Stride Length Decreased Feet Clearance Factors Limiting Gait Function Factors Limiting Gait Function Decreased Activity Tolerance Decreased Strength Limited Range of Motion Pain Poor Balance Poor Safety Awareness Comments Gait Comments Pt slow in ambulation. States her blood pressure is low and needs to take it easy. Pt drags RLE with ER of foot. Cueing for right knee flexion to achieve foot clearance. M5 PT-IP Objective Assessments Start: 04/16/18 10:01 Freq: NEEDED Status: Active Protocol: Document 04/16/18 09:35 AB (Rec: 04/16/18 12:24 AB [id number]) Orientation Orientation/Cognition Level of Alertness Alert Orientation Name Age Birthday Month Date Year Day of Week Place Situation Safety Awareness Understands Safety Issues Gross Range of Motion Lower Extremity ROM Assessment Left Impaired Impairments L knee flexion: 20 degrees Strength Lower Extremity Strength Assessment Left Impaired Hip 3-/5 Knee 3-/5 Ankle 4+/5 Sensation Assessment Sensation Gross Sensation WNL M6 PT-IP Treatment Start: 04/16/18 10:01 Freq: NEEDED Status: Active Protocol: Document 04/16/18 16:10 JASMIN (Rec: 04/17/18 12:40 LJ [email or web address]) Physical Therapy Treatment Exercises Exercises Ankle Pumps Gluteal Sets Short Arc Quads Education Education Provided Precautions Weight Bearing Status Safety Other Treatments Other Treatment Performed ice and warm blanket provided M7 PT-IP Assessment and Plan Start: 04/16/18 10:01 Freq: NEEDED Status: Active Protocol: Document 04/16/18 16:10 JASMIN (Rec: 04/17/18 12:40 LJ [email or web address]) PT Summary Assessment and Plan Frequency of Treatment Frequency Of Treatment Twice a Day Treatment Plan Physical Therapy Treatment Plan Bed Mobility Training Transfer Training Gait Training Therapeutic Exercise Balance Retraining Post Op Education Discharge Planning Hot or Cold Pack Neuromuscular Re-ed Coordination Retraining Manual Therapy Recommendations To Nursing Amount of Assist Needed 1 Person Assist Discharge Recommendations PT Discharge Recommendations Home with Assistance Home Health
--- NOTE | 2018-04-17 14:57 | PT.IPTN ---
Current Diagnoses Other infective bursitis, left knee (04/15/18) Presence of left artificial knee joint (04/15/18) Presence of unspecified artificial knee joint (04/15/18) Surgery Performed Operation Date: 04/15/18 10:45 Actual Procedures p Total Knee Arthroplasty Revision(Left) - Alise Stokes MD Physical Therapy Treatment Note M2 PT-IP Current Condition Start: 04/16/18 10:01 Freq: NEEDED Status: Active Protocol: Document 04/16/18 10:02 AB (Rec: 04/16/18 10:05 AB [id number]) Physical Therapy Current Condition Current Condition Evaluation Date 04/16/18 Treatment Diagnosis s/p L TKA revision; difficulty in walking Onset Date 04/15/18 Weight Bearing Status Weight Bearing Status Weight Bear as Tolerated M3 PT-IP Subjective Start: 04/16/18 10:01 Freq: NEEDED Status: Active Protocol: Document 04/17/18 14:40 GGD (Rec: 04/17/18 14:44 GGD [id number]) Subjective Physical Therapy Visit Type Type Treatment Note Visit Start Time 14:20 Visit Stop Time 14:45 Total Visit Minutes 25 Number of MERCERIZER MACHINE OPERATOR Visits 1 Physical Therapy Visit Comments Patient Comments Pt states she feeling better. Therapy Pain Assessment Pain Present Pain Present Denied Pain M4 PT-IP Mobility and Gait Start: 04/16/18 10:01 Freq: NEEDED Status: Active Protocol: Document 04/17/18 14:40 GGD (Rec: 04/17/18 14:57 GGD [email or web address]) PT-Bed Mobility Assessment Sit to Supine Sit to Supine Contact Guard Assistance Scooting Scooting to Edge of Bed Standby Assistance PT-Transfer Assessment Sit to and From Stand Sit to and from Stand Standby Assistance Equipment Transfer Assistive Device Gait Belt Front Wheeled Walker Orthotic/Prosthetic Devices or Brace: No Transfers Transfer Destination Bed Bedside Commode Transfer Ability Level of Assist Contact Guard Assistance Comments Mobility Comments O2 97% on 1L at rest, on RA with activity 94-96% Gait Assessment Gait Gait Assistance Required: Contact Guard Assist Distance (Feet) 50 Able to Maintain Weight Bearing Status Yes During Gait Assistive Devices Assistive Device Gait Belt Front Wheeled Walker Gait Deviations General Gait Pattern Antalgic Decreased Stride Length Decreased Feet Clearance Factors Limiting Gait Function Factors Limiting Gait Function Decreased Activity Tolerance Decreased Strength Limited Range of Motion Pain M5 PT-IP Objective Assessments Start: 04/16/18 10:01 Freq: NEEDED Status: Active Protocol: Document 04/16/18 09:35 AB (Rec: 04/16/18 12:24 AB [id number]) Orientation Orientation/Cognition Level of Alertness Alert Orientation Name Age Birthday Month Date Year Day of Week Place Situation Safety Awareness Understands Safety Issues Gross Range of Motion Lower Extremity ROM Assessment Left Impaired Impairments L knee flexion: 20 degrees Strength Lower Extremity Strength Assessment Left Impaired Hip 3-/5 Knee 3-/5 Ankle 4+/5 Sensation Assessment Sensation Gross Sensation WNL M6 PT-IP Treatment Start: 04/16/18 10:01 Freq: NEEDED Status: Active Protocol: Document 04/17/18 14:40 GGD (Rec: 04/17/18 14:44 GGD [id number]) Physical Therapy Treatment Exercises Exercises Ankle Pumps Gluteal Sets Seated Knee Flexion/Extension M7 PT-IP Assessment and Plan Start: 04/16/18 10:01 Freq: NEEDED Status: Active Protocol: Document 04/17/18 14:40 GGD (Rec: 04/17/18 14:57 GGD [email or web address]) PT Summary Assessment and Plan Summary Assessment Summary Pt improving with mobility. She CGA for bed mobility with leg rehabilitation center manager. She was safe and stable with gait and transfers . Safe for home D/C when medically stable. Frequency of Treatment Frequency Of Treatment Twice a Day Treatment Plan Physical Therapy Treatment Plan Bed Mobility Training Transfer Training Gait Training Therapeutic Exercise Balance Retraining Post Op Education Discharge Planning Hot or Cold Pack Neuromuscular Re-ed Coordination Retraining Manual Therapy Recommendations To Nursing Amount of Assist Needed 1 Person Assist Discharge Recommendations PT Discharge Recommendations Home with Assistance Home Health
[2018-04-17] MEDS: OXYCODONE IR 5 MG TABLET PO ×2 (17:19→22:54)
[2018-04-17] MEDS: hydrOXYzine pamoate 25 MG CAPSULE PO (17:19)
--- NOTE | 2018-04-17 18:09 | PC.NURSE ---
Addendum entered by Aida Greer R.N. 04/17/18 22:30: Up in recliner. Denies pain. Pedal pulses present BL with doppler. Has denied dizziness all evening shift. Voiding without difficulty. Original Note: Pt up to commode with walker. Does report pain 8/10 to left knee. Aquacel dressing intact. Pt provided with brief as states urgency with urination. Pt returned to bed and positioned for comfort with single lengthwise pillow under left lower extremity. Pt's spouse is present, attentive, and involved in pt's care. Pt reports full sensation to BL LE's. Ice to left knee. Meds as per emar.
[2018-04-18 05:45] VITALS: BP 103/54; PULSE 78; RESP 18; TEMP 36.6; O2SAT 95
--- NOTE | 2018-04-18 06:13 | PC.NURSE ---
pt ambulated to the BSC this morning and she denied dizziness or lightheadedness. pt tolerating pain /. call light in reach. bed alarm active.
[2018-04-18] MEDS: OXYCODONE IR 5 MG TABLET PO (06:55)
--- NOTE | 2018-04-18 07:49 | PC.NURSE ---
Addendum entered by Sujit Ohara R.N. 04/18/18 10:49: Pt readied for d/c. assisting with a.m. care and readying car for discharge. Pt and given prescriptions and d/c instructions. Pt escorted to private car by AGUSTIN Villela. Original Note: Ptalert and oriented states she was released by PT. Doing much better, no dizziness, no O2 need, expects to go home once arrives.Dressing clean dry and intact.
[2018-04-18 08:02] VITALS: BP 97/58; PULSE 82; RESP 16; TEMP 36.6; O2SAT 96
--- NOTE | 2018-04-18 08:45 | P.DS_ITS ---
History of Present Illness Chief complaint: total knee arthroplasty revision left [id number] Discharge Providers Date of admission: 04/15/18 08:52 Primary care physician: Kelli Stovall MD Consults: 04/06/18 10:43 Consult to Pastoral Services Routine Comment: LT TKA Rev 04/1504/15/18 06:00 Consult to Anesthesiology Routine Comment: Consulting Provider: Anesthesiologist Reason for consultation: Regional block for post operative pain control 04/15/18 17:50 Consult to Discharge Planning Routine Comment: home health PT for 10 days Consult to Physical Therapy Evaluate & Treat Comment: Physician Instructions: postop TKA protocol Consult to Respiratory Therapy Evaluate & Treat Comment: Physician Instructions: Evaluate and treat 04/15/18 17:54 Consult to Pastoral Services Routine Comment: support 04/16/18 10:48 Consult to Home Health Routine Comment: Reason For Exam: Home Health RN/PT/OT Upon DC Discharge provider: Alise Stokes MD Discharge Date: 04/18/18 Summary Hospital Course: Patient was taken to the operating room she underwent a revision left total knee arthroplasty. She tolerated the procedure well. She was stable postoperatively. Her wound was benign. Sugars were adequately controlled. She progressed with physical therapy and had some mild lightheadedness and we recommended that she cut back on her blood pressure medications. She was independent and discharged to home. Home health therapy with [facility] health therapy was arranged for her postoperative course. The plan is to transition to outpatient physical therapy as soon as she is adequately independent. Exam Vital Signs (past 8 hours): - 04/18/18 05:45 04/18/18 08:02 Temperature 97.9 F 97.9 F Pulse Rate 78 82 Respiratory Rate 18 16 Blood Pressure 103/54 L 97/58 L Pulse Oximetry 95 96 Oxygen Delivery Method Room Air Oxygen Flow Rate 0 Narrative Exam Narrative: Alert and oriented, HEENT is benign lungs are clear cor regular rate and rhythm, bilaterally, left leg dressing intact, able to do a straight leg raise but weak, adequate range of motion no pain with palpation along the calves bilaterally Objective Labs Result Diagrams: 04/17/18 09:30 Labs: Laboratory Results - last 24 hr 04/17/18 09:30 WBC 7.6 RBC 4.80 Hgb 10.7 L Hct 33.5 L MCV 69.9 L MCH 22.2 L MCHC 31.8 RDW 17.1 H Plt Count 164 Neut % (Auto) 80.0 H Lymph % (Auto) 7.1 L [place] % (Auto) 8.5 Eos % (Auto) 4.1 H Baso % (Auto) 0.3 Neut # (Auto) 6100 RBC Morphology See below Microcytosis 1+ H Discharge Plan Discharge Plan Patient Disposition: Home Discharge Med Rec/Prescriptions Prescriptions: New acetaminophen 325 mg Tablet 975 mg PO TID Qty: 0 RF: 0 aspirin 81 mg Tablet,Delayed Release (Dr/Ec) 81 mg PO BID Qty: 0 RF: 0 docusate sodium 100 mg Capsule 100 mg PO BID Qty: 0 RF: 0 oxycodone 5 mg Tablet 5 mg PO Q4H PRN (Reason: Pain, Moderate (4-6)) Qty: 40 RF: 0 hydroxyzine pamoate 25 mg Capsule 25 mg PO Q6HR PRN (Reason: Nausea) Qty: 50 RF: 0 Continue metformin 850 mg Tablet 850 mg PO BID Qty: 0 RF: 0 atenolol 50 MG tablet 50 mg PO QDAY Qty: 0 RF: 0 losartan 50 MG tablet 100 mg PO QDAY Qty: 0 RF: 0 hydrochlorothiazide 25 MG tablet 25 mg PO QDAY Qty: 0 RF: 0 oxybutynin chloride 5 mg Tablet 5 mg PO BID RF: 0 potassium chloride 20 mEq Tablet Extended Release 20 meq PO DAILY RF: 0 colchicine 0.6 mg Capsule 0.6 mg PO DAILY PRN (Reason: as needed for gout recurrence) RF: 0 Discontinued aspirin 81 mg tablet,delayed release (DR/EC) 81 mg PO DAILY RF: 0 Follow up/Referrals: Kelli Stovall MD [Primary Care Provider] - Alise Stokes MD [Physician] - (Follow up in the office at your previously scheduled post-operative appointment.) Provider Discharge Instructions Diet: Carb-consistent/Diabetic Activity: Weightbearing as tolerated, use walker until cleared by physical therapy Cold/Heat Therapy: Apply ice 20 minutes at a time at least hourly to surgical area while awake Skin/Wound/Dressing Care Report to your healthcare provider any signs of infection, such as:: chills, fever, night sweats, increased pain, unusual drainage and unusual redness Dressing: Keep dressing clean, dry, and intact. May shower with dressing on, no soaking or swimming. Visit Report/Discharge Packet Instructions: JETHRO for Heart Failure, DI for Knee Replacement Visit Report Forms: Congestive Heart Failure, Stroke Signs & Symptoms Discharge Data Primary Care Provider: Kelli Stovall Attending Provider: Alise Stokes Admit Date/Time: 04/15/18 08:52 Quality VTE Deep Vein Thrombosis/Pulmonary Embolism Present on Admission: No
[2018-04-18] MEDS: DOCUSATE 100 MG CAPSULE PO (08:47)
[2018-04-18] MEDS: ASPIRIN EC 81 MG TABLET PO (08:48)
[2018-04-18 08:49] VITALS: BP 97/58; PULSE 82
[2018-04-18] MEDS: hydroCHLOROthiazide 25 MG TABLET PO (08:49)
[2018-04-18] MEDS: OXYBUTYNIN 5 MG TABLET PO (08:50)
[2018-04-18] MEDS: METFORMIN 850 MG TABLET PO (08:50)
[2018-04-18] MEDS: POTASSIUM CHLORIDE 20 MEQ TAB PO (08:50)
--- NOTE | 2018-04-18 15:06 | CM.DPC ---
DCP continued: Reviewed chart. Received notification patient okay to d/c home today with . Placed call to [facility] spoke with [place] she confirms that they have received the orders. [place] requesting d/c summary. Faxed requested information to [phone]. Attempted to meet with patient to have Important Message from Medicare signed but patient had already discharged. P: Home today with HH through [facility]. CALLY Villavicencio
== END 2018-04-18 10:30 | disposition home health service (06) | DRG 467 ==
PROVIDERS: Admitting Provider Orthopaedic Surgery; PCP Family Medicine; Visit Provider Orthopaedic Surgery
PROC: 0SPD08Z Removal of Spacer from Left Knee Joint, Open Approach (ICD-10-PCS; principal; 2018-04-15 10:45)
DX: T84.54XA Infection and inflammatory reaction due to internal left knee prosthesis, initial encounter (principal); Z68.41 Body mass index [BMI] 40.0-44.9, adult; I10 Essential (primary) hypertension; M79.7 Fibromyalgia; E11.9 Type 2 diabetes mellitus without complications; Z79.84 Long term (current) use of oral hypoglycemic drugs; R42 Dizziness and giddiness; E66.01 Morbid (severe) obesity due to excess calories
CPT/HCPCS: 36415; 73560; 82962; 85014; 85018; 85025; 87070; 87075; 87205; 87801; 89051; 97116; 97161; 97530; C1776; C9290; J0131; J0878; J2250; J2405; J2704; J3010; J3370